=== PATIENT | male | born 1950 | race Caucasian/White ===

== ENCOUNTER 2020-01-06 07:55 | Day surgery (SDC) | payer OTHER, SELFPAY ==
[2020-01-05 13:41] VITALS: BMI 26.3
--- NOTE | 2020-01-06 08:22 | ANES.PREANE2 ---
Pre-Anesthetic Assessment Pre-Anesthetic Assessment: Height/Weight: Height 1.68 m Weight 73.936 kg Preop Diagnosis: Polyps Proposed Procedure: Operation Date: 01/06/20 10:00 Proposed Procedures p Colonoscopy(Not Applicable) - Isai Sterling MD Familial anesthetic complications: No trouble Last intake: Patient hasn't taken any of his medication in 3 -4 days, stopped them because he decided to NPO since yesterday morning Social: Social History: No alcohol and No tobacco Exam: Pre-Anes Outpt Exam: alert, oriented x 3, clear to auscultation bilaterally and regular rate & rhythm Airway: Cervical ROM: WNL MP: 4 Dentition: Full Pulmonary: Pulmonary: Sleep apnea (cpap) and None reported CV/HEM: CV/HEM: CAD, HTN and IN (7 years ago (placed 3 stents - then 2 years ago he had another stent placed)) Comments: Will give carvedilol : : None reported Hepatic: Hepatic: None reported GI: GI: None reported Metabolic: Metabolic: None reported Musc/skel: Musc/skel: None reported Neuropsych: Neuropsych: None reported Anesthetic Plan: ASA status: 3 Anesthesia: MAC Risk of > 500 ml blood loss (7ml/kg in children): No PFSH Anesthesia PFSH: Social History Smoking and tobacco status: never smoked Alcohol intake: former Lives independently: Yes Household members: spouse Marital status: Current occupational status: retired History of recent travel: No Data Anesthesia Cardiac Studies: No Data to Display
[2020-01-06 09:15] VITALS: BP 153/99; PULSE 78; RESP 18; TEMP 36.9; O2SAT 94
[2020-01-06] MEDS: sodium chloride 0.9% 1,000 ML 30 ML (09:25)
[2020-01-06] MEDS: carvedilol 6.25 mg Tablet PO (09:25)
--- NOTE | 2020-01-06 12:04 | SUR.OPER ---
RESOLUTION CLIP PLACED AT THE CECAL POLYP SITE
[2020-01-06 12:09] VITALS: BP 129/68; PULSE 55; RESP 16; TEMP 36.9; O2SAT 95
--- NOTE | 2020-01-06 12:15 | ANE.PACU2 ---
 Inpatient post-anesthesia follow up: Airway intact: Yes Vital signs: Temperature 98.4 F Pulse Rate 55 Respiratory Rate 16 Blood Pressure 129/68 Pulse Oximetry 95 Oxygen Delivery Me thod Nasal Cannula Oxygen Flow Rate 3.0 Fraction of Inspir ed Oxygen Hydration adequate: Yes Nausea and vomiting: No Pain level: 1 Mental status: Baseline
[2020-01-06 12:22] VITALS: BP 137/79; PULSE 54; RESP 18; O2SAT 97
--- NOTE | 2020-01-12 08:02 | W.PM.OPSUD ---
Surgery/Procedure H&P Update DATE OF PROCEDURE: 01/09/2020 DATE H&P PERFORMED: 12/09/19 PREOP DIAGNOSIS: History of colon polyps PLANNED PROCEDURE: Operation Date: 01/06/20 10:00 Proposed Procedures p Colonoscopy(Not Applicable) - Isai Sterling MD
== END 2020-01-06 12:40 | disposition home or self-care (01) ==
PROVIDERS: Family Provider Family Medicine; PCP Internal Medicine; Visit Provider Surgery
PROC: 0DJD8ZZ Inspection of Lower Intestinal Tract, Via Natural or Artificial Opening Endoscopic (ICD-10-PCS; CPT 45378; principal; 2020-01-06 10:00)
DX: Z12.11 Encounter for screening for malignant neoplasm of colon (principal); Z86.010 Personal history of colon polyps; Z79.82 Long term (current) use of aspirin; E78.5 Hyperlipidemia, unspecified; I10 Essential (primary) hypertension; G47.30 Sleep apnea, unspecified; Z82.49 Family history of ischemic heart disease and other diseases of the circulatory system; I25.10 Atherosclerotic heart disease of native coronary artery without angina pectoris; I25.2 Old myocardial infarction
CPT/HCPCS: 12345; 45385; 88305; J2704; J7030

== ENCOUNTER → 2020-08-16 14:48 | Outpatient (BNVA) | payer OTHER, SELFPAY | PROVIDERS: Family Provider Family Medicine; PCP Family Medicine; Visit Provider Internal Medicine Cardiovascular Disease | DX: E78.2 Mixed hyperlipidemia (principal); R06.02 Shortness of breath; R07.89 Other chest pain | CPT/HCPCS: 80048; 80061; 84484 ==

== ENCOUNTER 2020-09-02 07:43 | Outpatient (CLI) | payer OTHER, SELFPAY ==
[2020-09-02 07:52] VITALS: BMI 22.6
--- NOTE | 2020-09-02 07:54 | ECG_ITS ---
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 Interpretive Statements NAME OF STUDY: LEXISCAN SESTAMIBI STRESS TEST INDICATION: Chest Pain PROCEDURE: At the baseline, the EKG revealed sinus bradycardia with a rate of 51 bpm. Early repolarization changes.. The baseline blood pressure was 134/66 mm Hg with a heart rate of 51 beats/min. Lexiscan was infused over a period of 20 seconds. A total of 0.4 milligrams of Lexiscan was infused. The stress phase was continued for a total of 5 minutes. Heart rate at the end of the stress phase was 67 with a blood pressure 117/62. The EKG at the peak infusion revealed no significant changes. Sestamibi was injected 20 seconds after the Lexiscan infusion. Blood pressure at the end of the recovery phase was 128/66 with a heart rate of 65 per minute. CONCLUSION: 1. No significant EKG changes with the LexiScan infusion 2. No LexiScan induced chest pain or cardiac arrhythmia 3. Normal blood pressure and heart rate response 4. Sestamibi/sestamibi perfusion scan pending; see separate report. Electronically Signed On 09-03-2020 20:48:37 CDT by Mateo Lantigua M.D. [id number]
--- NOTE | 2020-09-02 07:54 | NMCV_ITS ---
NM sean perf SPECT r/s* [id number] Pacheco Gomez Age: 70 Gender: M : 1950 Exam Date: 09/02/2020 07:59 Ordering Phys: Mateo Lantigua MD ([email or web address]) Technologist: CASEY Gonzales Exam Location: [facility] Indications: CHEST PAIN STRESS TEST Please [facility] IMAGE PROTOCOL Rest/Stress 1 Lexiscan Day Radiopharmaceutical Dose (mCi) Administration Site Administered by Rest: Tc-99m 10.7 IV CASEY Crowley Sestamibi Stress:Tc-99m 32.3 IV CASEY Crowley Sestamibi Rest: 02-Sep-2020 60 Discovery 630 Stress: 02-Sep-2020 30 Discovery 630 0.4mg Lexiscan. Images obtained in supine and prone position. SPECT RESULTS Technical Quality: Excellent Raw Data Analysis: Normal Image Corrections: No attenuation or motion correction applied Summed Stress Score: 0 Summed Rest Score: 0 Summed Difference Score: 0 PERFUSION FINDINGS Fairly uniform myocardial tracer uptake with no significant perfusion abnormalities FUNCTIONAL RESULTS (calculated via Gated SPECT) Stress Image LV EF (%): 62 Stress EDV (mL):77 TID: 1.09 Stress ESV (mL):29 FUNCTIONAL FINDINGS: Segmental wall motion analysis revealing no gross wall motion abnormalities IMPRESSIONS 1. Unremarkable myocardial perfusion imaging 2. Normal LV ejection fraction of 62%. 3. LV wall motion analysis revealing no gross wall motion normalities. 4. Normal LV volume. Low probability for significant myocardial ischemia Dr Mateo Lantigua MD [facility] (Electronically Signed) Final Date: 02 September 2020 14:05 S
--- NOTE | 2020-09-02 09:09 | SUR.PREOP ---
Patient reports no pain or discomfort prior to the start of the procedure.
[2020-09-02] MEDS: regadenoson 0.4 Mg/5 ml Syringe IVP (09:10)
[2020-09-02 09:27] VITALS: BP 123/65; PULSE 65
== END 2020-09-02 07:44 | disposition home or self-care (01) ==
LOC: CDL 07:45
PROVIDERS: PCP Family Medicine; Visit Provider Internal Medicine Cardiovascular Disease
DX: R07.9 Chest pain, unspecified (principal); R06.02 Shortness of breath
CPT/HCPCS: 78452; 93017; A9500; J2785

== ENCOUNTER → 2021-04-29 10:00 | Outpatient (BNVA) | payer OTHER, SELFPAY | PROVIDERS: PCP Family Medicine; Referring Provider Surgery; Visit Provider Surgery | DX: Z20.822 Contact with and (suspected) exposure to COVID-19 (principal) | CPT/HCPCS: 87635 ==

== ENCOUNTER 2021-05-04 07:46 | Day surgery (SDC) | payer OTHER, SELFPAY ==
[2021-05-02 10:23] VITALS: BMI 25.8
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
[2021-05-04 08:33] VITALS: BP 175/86; PULSE 60; RESP 18; TEMP 36.2; O2SAT 95
[2021-05-04] MEDS: sodium chloride 0.9% 1,000 ML 30 ML IV (08:57)
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
[2021-05-04 09:58] VITALS: BP 135/69; PULSE 53; RESP 16; O2SAT 93
--- NOTE | 2021-05-04 10:01 | ANE.PACU2 ---
Inpatient post-anesthesia follow up: Airway intact: Yes Vital signs: Temperature 97.2 F Pulse Rate 60 Respiratory Rate 18 Blood Pressure 175/86 Pulse Oximetry 95 Oxygen Delivery Me thod Room Air Oxygen Flow Rate Fraction of Inspir ed Oxygen Hydration adequate: Yes Nausea and vomiting: No Pain level: 1 Mental status: Baseline
[2021-05-04 10:20] VITALS: BP 142/74; PULSE 55; RESP 18; O2SAT 95
== END 2021-05-04 10:40 | disposition home or self-care (01) ==
PROVIDERS: PCP Family Medicine; Visit Provider Surgery
PROC: 0DJ08ZZ Inspection of Upper Intestinal Tract, Via Natural or Artificial Opening Endoscopic (ICD-10-PCS; CPT 43235; principal; 2021-05-04 09:15)
PROC: 0DJD8ZZ Inspection of Lower Intestinal Tract, Via Natural or Artificial Opening Endoscopic (ICD-10-PCS; CPT 45378; 2021-05-04 09:15)
DX: K92.1 Melena (principal); K57.30 Diverticulosis of large intestine without perforation or abscess without bleeding; K21.00 Gastro-esophageal reflux disease with esophagitis, without bleeding; K29.80 Duodenitis without bleeding; F32.9 Major depressive disorder, single episode, unspecified; Z86.010 Personal history of colon polyps; E78.5 Hyperlipidemia, unspecified; I10 Essential (primary) hypertension; G47.30 Sleep apnea, unspecified; Z82.49 Family history of ischemic heart disease and other diseases of the circulatory system; Z83.3 Family history of diabetes mellitus; I25.10 Atherosclerotic heart disease of native coronary artery without angina pectoris; Z95.5 Presence of coronary angioplasty implant and graft; I25.2 Old myocardial infarction
CPT/HCPCS: 43239; 45378; 87077; 96360; 96361; J2704; J7030

== ENCOUNTER 2021-08-29 07:13 | Outpatient (CLI) | payer OTHER, SELFPAY ==
[2021-08-29 07:34] VITALS: BMI 25.8
--- NOTE | 2021-08-29 07:35 | ECG_ITS ---
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 Interpretive Statements NAME OF STUDY: LEXISCAN SESTAMIBI STRESS TEST INDICATION: Cp/ashd, PROCEDURE: At the baseline, the EKG revealed sinus bradycardia with a rate of 55 bpm. Early repolarization changes. The baseline blood pressure was 133/70 mm Hg with a heart rate of 55 beats/min. Lexiscan was infused over a period of 20 seconds. A total of 0.4 milligrams of Lexiscan was infused. The stress phase was continued for a total of 5 minutes. Heart rate at the end of the stress phase was 74 with a blood pressure 102/56. The EKG at the peak infusion revealed no significant changes. Sestamibi was injected 20 seconds after the Lexiscan infusion. Blood pressure at the end of the recovery phase was 103/61 with a heart rate of 70 per minute. CONCLUSION: 1. No significant EKG changes with the LexiScan infusion 2. No LexiScan induced chest pain or cardiac arrhythmia 3. Normal blood pressure and heart rate response 4. Sestamibi/sestamibi perfusion scan pending; see separate report. Electronically Signed On 09-01-2021 23:16:51 CDT by Mateo Lantigua M.D. [id number]
--- NOTE | 2021-08-29 07:35 | NMCV_ITS ---
NM sean perf SPECT r/s* [id number] Pacheco Gomez Age: 71 Gender: M : 1950 Exam Date: 08/29/2021 08:43 Ordering Phys: Mateo Lantigua MD ([email or web address]) Technologist: CASEY Gonzales Exam Location: [facility] Indications: CHEST PAIN STRESS TEST Please see [facility] for full findings IMAGE PROTOCOL Rest/Stress 1 Lexiscan Day Radiopharmaceutical Dose (mCi) Administration Site Administered by Rest: Tc-99m 10.8 IV CASEY Crowley Sestamibi Stress:Tc-99m 32.5 IV CASEY Gonzales Sestamishelley Rest: 29-Aug-2021 60 Discovery 630 Stress: 29-Aug-2021 30 Discovery 630 0.4mg Lexiscan. Images obtained in supine and prone position. SPECT RESULTS Technical Quality: Excellent Raw Data Analysis: Normal Image Corrections: No attenuation or motion correction applied Summed Stress Score: 1 Summed Rest Score: 0 Summed Difference Score: 1 PERFUSION FINDINGS A small area of slightly decreased tracer uptake was noted in the mid inferolateral region. Some reversibility was noted in this region at rest FUNCTIONAL RESULTS (calculated via Gated SPECT) Stress Image LV EF (%): 71 Stress EDV (mL):73 TID: 0.85 Stress ESV (mL):21 FUNCTIONAL FINDINGS: Segmental wall motion analysis revealing no gross wall motion abnormalities IMPRESSIONS 1. A small area of reversible defect in the mid inferolateral region, suggestive of ischemia in the distribution of the left circumflex artery. 2. Normal LV ejection fraction 71%. 3. LV wall motion analysis revealing no gross wall motion abnormalities. 4. Normal LV volume. No similar previous studies are available for comparison Dr Mateo Lantigua MD [facility] (Electronically Signed) Final Date: 29 August 2021 16:32 S
[2021-08-29] MEDS: regadenoson 0.4 Mg/5 ml Syringe IVP (09:31)
[2021-08-29 09:32] VITALS: BP 103/61; PULSE 70
== END 2021-08-29 07:14 | disposition home or self-care (01) ==
LOC: RAD 07:17 → CDL 07:23
PROVIDERS: PCP Family Medicine; Visit Provider Internal Medicine Cardiovascular Disease
DX: R07.9 Chest pain, unspecified (principal)
CPT/HCPCS: 78452; 93017; A9500; J2785

== ENCOUNTER → 2021-08-31 15:38 | Outpatient (BNVA) | payer OTHER, SELFPAY | PROVIDERS: PCP Family Medicine; Visit Provider Internal Medicine Cardiovascular Disease | DX: I25.118 Atherosclerotic heart disease of native coronary artery with other forms of angina pectoris (principal); Z20.822 Contact with and (suspected) exposure to COVID-19 | CPT/HCPCS: 80048; 85025; 85610; 87635 ==

== ENCOUNTER 2021-09-07 08:40 | Day surgery (SDC) | payer OTHER, SELFPAY ==
[2021-09-07] VITALS (20 sets, daily range): BP systolic 93–161; BP diastolic 56–77; PULSE 41–50; RESP 10–20; TEMP 36.3; O2SAT 88–98; BMI 25.4
--- NOTE | 2021-09-07 06:00 | XACV_ITS ---
Exam Room: 1 Ht: 168 cm Wt: 72 kg BSA: 1.84 m2 Gender: Male : 1950 Any Known Allergies: No known allergies Exam Priority: Routine Procedure(s): Procedure Description: Diagnostic procedure Procedure Description: Left Heart Catheterization Procedure Description: Coronary Angiography Grzegorz HAMM; Diagnostic Cath Status: Elective Diagnostic Findings * No disease noted in the Left Main, Left Anterior Descending, Right, or Circumflex coronary arteries. * Coronary angiography shows right dominance. * The left main is a medium caliber vessel with no significant stenotic lesions. * The left anterior descending artery is a medium caliber vessel which appears to wrap around the LV apex minimally. The proximal LAD was found to have moderate diffuse disease, lesions ranging anywhere from 30 to 50%. The mid LAD was found to have a long stented segment which was found to be patent with minimal in-stent stenosis. The first diagonal branch was found to be a medium caliber vessel with a proximal around 50 to 60% narrowing, including the ostium.. Good antegrade flow was noted. No other significant stenotic lesions were noted. * The left circumflex artery is a medium caliber vessel which was found to have 20 to 30% diffuse intimal regularities in the proximal segment. No significant stenotic lesions are noted in the mid to distal vessels. * The right coronary artery is a medium caliber vessel which was found to have a proximal 20 to 30% diffuse tubular narrowing. Minimal intimal irregularities are noted in the mid and distal vessels. No significant stenotic lesions. Conclusions 1. No disease noted in the Left Main, Left Anterior Descending, Right, or Circumflex coronary arteries. 2. This is a 71-year-old white male with history of coronary artery disease, high blood pressure, dyslipidemia, type 2 diabetes and previous PCI, is presenting with complaints of increasing episodes of chest pain. He had a myocardial perfusion imaging which revealed a some areas of reversible defect in the distribution of the left circumflex artery. In view of the ongoing worsening of the patient's symptoms and also the abnormal objective findings, for further evaluation of his coronary status, cardiac catheterization was recommended.patient underwent left heart catheterization with left and right coronary angiogram today. The findings are as follows.. 3. Patent long stented segment of the left anterior descending artery. Minimal in-stent narrowing. Mild diffuse disease in the other vessels. Moderate ostial narrowing of the first diagonal branch of the left anterior descending artery. Markedly elevated left ventricular end-diastolic pressure. 4. I reviewed and discussed the cardiac catheterization data with the daughter Rylee. The concern was whether to do a FFR on the diagonal lesion or not. Since the stenosis did not look severe and also since the area of ischemia was different from the diagonal artery territory, it was thought to be appropriate to optimize medical treatment at this point. Recommendations * Continue current medical management and risk factor modification. Diagnostic RX Recommendation: medical therapy and/or counseling LV EDP: 28 mmHg Left Ventriculography Findings: * LV gram was not performed. Pressures Phase:Rest AO : 99 / 56 ( 74 ) @ 6:36:00 AM 117 / 45 ( 82 ) @ 6:41:00 AM 119 / 69 ( 91 ) @ 6:47:00 AM 121 / 72 ( 94 ) @ 6:50:00 AM 133 / 53 ( 85 ) @ 6:57:00 AM 132 / 55 ( 87 ) @ 6:57:00 AM 132 / 59 ( 87 ) @ 7:02:00 AM 171 / 58 ( 98 ) @ 7:06:00 AM LV : 112 / 21 / 28 @ 6:57:00 AM 121 / 13 / 30 @ 6:57:00 AM Valves Phase:DefaultPhase AV : 0.0 @ 8:14:45 AM AV Mean Gradient: 0.0 @ 8:14:45 AM Clinical Evaluation EBL: 5mL-10mL Procedural Details Procedure Consent Obtained. Pre-Procedure Time Out. Identified patient by full name and date of as verbalized by the patient/guarantor. Does the consent match the physician's order: Yes. Accurate & Complete Informed Consent: Yes. Inpatient/Outpatient History & Physical on Chart: Yes. If H&P is completed, is and addenduem needed: No; If yes, is the addendum complete: N/A. Visualize and Verify Site with Patient/Guarantor: N/A. Relevant Radiology Images available: Yes. Pre-op teaching completed and patient verbalized understanding. The risks, benefits, and alternatives of sedation and/or procedure were discussed by physician. The patient agrees to continue. Procedure started. [facility] Clinical Fraility Score: 3: Managing Well. Senior Qc Technician Indications: Worsening Angina. Chest Pain Symptom Assessment: Typical Angina Symptoms. Current Diagnosis : Chest Pain. Correct patient, site and procedure confirmed by cath team. Current diagnosis: Chest Pain. PERRLA. Strong, equal hand elevator installer bilaterally. Lungs clear x 5 lobes. IV Site on Arrival: 20 gauge in the left anticubital. IV Fluids: 0.9% NaCl at KVO. 0 mL infused prior to entry level lab technician. Pre Procedural Pulses: bilateral dorsalis pedis was 1+. Pre Procedural Pulses: bilateral posterior tibial was 1+. Pre Procedural Pulses: right radial was 2+. Oxygen started at 2liters/min via nasal canula. right groin was prepped with chloroprep then draped in the usual sterile fashion. right radial was prepped with chloroprep then draped in the usual sterile fashion. Physician notified. Baseline sample Acquired. HR: 43 BPM. Physician arrived. Physician scrubbed in. Immediate Pre-Procedure Time Out. Correct Patient: Yes; Correct Procedure: Yes; Correct Site: Yes; Correct Patient Position: Yes; Correct Supplies: Yes; Dried Flammable Prep: Yes; Blood Products Available: N/A;. Lidocaine 1% infiltrated to the right radial. Arterial access obtained. A 5 trinidadian Mathieu catheter in over wire. wire out. contrast hand injected through the catheter. Inventory is TR Glidewire Angled Stiff Shaft .035 260cm. glidewire inserted through the catheter. Catheter removed over the exchange wire. A 5 trinidadian TIG catheter in over wire. Multiple views taken of left coronary artery. Catheter redirected to the RCA. Catheter removed over the exchange wire. Dr. Mckee called to review films. A 5 trinidadian JR4 catheter in over wire. Multiple views taken of right coronary artery. Catheter removed over the exchange wire. A 5 trinidadian Angled Pig catheter in over wire. EDP Sample taken: LV 112/21,28; HR: 55 BPM; SpO2: 96%. Pullback taken: LV 121/13,30; AO 133/53(85); Mean: 0mmHg, Peak to Peak: 0mmHg, SEP: 3sec/min; HR: 54 BPM; SpO2: 98%. Side port of sheath attached to Normal Saline flush at KVO to maintain patency. Dr. Lantigua scrubbed out. Dr. Mckee arrived. Catheter removed over the exchange wire. A TR Band was successful obtaining hemostatsis at the Right Radial artery insertion site. Post Procedure: Pulses reassessed and unchanged. PERRLA. Strong, equal hand elevator installer bilaterally. No VTE prophylaxis required. Medication's Wasted: Lidocaine 1% = 15 mL. Medication's Wasted: Heparin = 1000 units. Medication's Wasted: Nitro = 49.8 mcg. Total IV fluids: 331 mL. Contrast type used: Omnipaque 300 mgI/mL, 500 mL bottle. Complications: None. Estimated blood loss: 5mL-10mL. Procedure completed. Patient transferred by wheelchair to CPRU. Vital chart was stopped. Access Site Site: Right Radial artery Sheath Size: 6 Fr Hemostasis Method: TR Band Hemostasis Success: Successful Procedure Medications Start: 7:13 AM Stop: 7:13 AM Medication: Fentanyl Amount: 25 mcg Route: I.V. Start: 7:20 AM Stop: 7:20 AM Medication: Versed Amount: 1 mg Route: I.V. Start: 7:20 AM Stop: 7:20 AM Medication: Fentanyl Amount: 50 mcg Route: I.V. Start: 7:26 AM Stop: 7:26 AM Medication: Versed Amount: 1 mg Route: I.V. Start: 7:28 AM Stop: 7:28 AM Medication: Verapamil Amount: 5 mg Route: I.A. Start: 7:28 AM Stop: 7:28 AM Medication: Nitrogylcerin Amount: 200 mcg Route: I.A. Start: 7:28 AM Stop: 7:28 AM Medication: 0.9% Saline Amount: 250 ml Route: I.V. bolus Start: 7:35 AM Stop: 7:35 AM Medication: Heparin Amount: 5000 units Route: I.V. Start: 8:02 AM Stop: 8:02 AM Medication: Fentanyl Amount: 25 mcg Route: I.V. I, the attending physician, have reviewed and verified all procedure medications. Yes, all medications given per verbal order History/Risk Factors Hypertension: Yes Dyslipidemia: Yes Peripheral Arterial Disease (PAD): No Myocardial Infarction (KS): No Obesity: No Renal Disease: No Prior Interventions PCI: Yes CABG: No Valve Surgery: No Date of PCI: 06/07/2017 Report Signatures Finalized by Dr Mateo Lantigua MD [facility] on 09/07/2021 11:01 PM
--- NOTE | 2021-09-07 07:17 | W.PM.OPSUD ---
Surgery/Procedure H&P Update DATE OF PROCEDURE: September 07, 2021 DATE H&P PERFORMED: 08/31/21 H&P UPDATE INFORMATION: I have reviewed H&P completed within last 30 days, I have examined patient prior to procedure, No changes to prior documentation, Changes to prior documentation as noted here, H&P to be scanned into chart and H&P is in [facility] EMR on date indicated PREOP DIAGNOSIS: ASHD PRIMARY INDICATION FOR PROCEDURE: chest pain,abnormal stress PLANNED PROCEDURE: Operation Date: 09/07/21 07:00 Proposed Procedures p Cardiac Catheterization(Left) - Mateo Lantigua MD PATIENT REASSESSED PRIOR TO SEDATION, WITH NO CHANGE NOTED: Yes PHYSICAL EXAM: alert, clear to auscultation bilaterally and regular rate & rhythm AIRWAY EVAL/ANESTHESIA PLAN: normal airway, see other exam findings, ASA III, Monitored Anesthesia, Local Anesthesia, Risks, benefits & alternatives of sedation and/or procedure discussed and Patient agrees to continue as planned
--- NOTE | 2021-09-07 12:00 | PC.NURSE ---
TR band removal per protocol no adverse events noted
--- NOTE | 2021-09-07 14:32 | PC.NURSE ---
Discharge Note Patient discharged to Home via private vehicle accompanied by spouse. Discharge instructions reviewed with patient and/or territory sales representative. Mobile pharmacy medications and/or prescriptions provided. Belongings/home medications returned.
== END 2021-09-07 14:05 | disposition home or self-care (01) ==
LOC: CSU 13:11 → OPOB 09-16 10:27 → CSU 09-16 10:27
PROVIDERS: PCP Family Medicine; Visit Provider Internal Medicine Cardiovascular Disease
DX: R07.9 Chest pain, unspecified (principal); R94.39 Abnormal result of other cardiovascular function study; I25.10 Atherosclerotic heart disease of native coronary artery without angina pectoris; Z95.5 Presence of coronary angioplasty implant and graft; I10 Essential (primary) hypertension; E78.5 Hyperlipidemia, unspecified; E11.9 Type 2 diabetes mellitus without complications
CPT/HCPCS: 36415; 93452; C1769; C1887; C1894; G0378; J1644; J2250; J3010; J3490; J7030; Q9967

== ENCOUNTER → 2021-09-14 11:00 | Outpatient (BNVA) | payer OTHER, SELFPAY | PROVIDERS: PCP Family Medicine; Visit Provider Nurse Practitioner Family | DX: I25.118 Atherosclerotic heart disease of native coronary artery with other forms of angina pectoris (principal) | CPT/HCPCS: 80048 ==

== ENCOUNTER → 2022-02-15 13:06 | Outpatient (BNVA) | payer OTHER, SELFPAY | PROVIDERS: PCP Family Medicine; Visit Provider Internal Medicine Cardiovascular Disease | DX: I25.118 Atherosclerotic heart disease of native coronary artery with other forms of angina pectoris (principal); I10 Essential (primary) hypertension; E78.2 Mixed hyperlipidemia | CPT/HCPCS: 99214 ==

== ENCOUNTER 2022-02-16 09:01 | Outpatient (CLI) | payer OTHER, SELFPAY ==
--- NOTE | 2022-02-16 09:12 | MR_ITS ---
WS: [id number] MRI HEAD WITHOUT CONTRAST TECHNIQUE: Sagittal T1, T2 axial, T2 axial FLAIR, axial and coronal T1 images, axial susceptibility w eighted imaging, axial diffusion weighted images, and coronal T2 images were obtained. CLINICAL INFORMATION: NEW ONSET HEADACHES COMPARISON: CT head 8 16,018 FINDINGS: No evidence of restricted diffusion to suggest acute ischemia. Ventricular system and basal cisterns are patent. Mild small vessel changes. Mild parenchymal volume loss. Normal posterior fossa. Normal v ascular flow voids at the skull base. No extra-axial fluid collections. No evidence of mass or mass e ffect. Small Retention cyst LEFT maxillary sinus. Mastoid air cells well aerated. Normal optic chiasm and pi tuitary infundibulum. Temporal lobes and hippocampal formations are normal in appearance. No hemoside rin on susceptibly weighted images. MR/MR head wo con* [id number] IMPRESSION: 1. No evidence of restricted diffusion to suggest acute ischemia. 2. Mild small vessel changes. Mild parenchymal volume loss. 3. No hemosiderin on the susceptibly weighted images. 4. Small retention cyst left maxillary sinus. Paranasal sinuses and mastoid ai r cells are well aerated. 5. Normal optic chiasm and pituitary infundibulum. 6. No other significant findings.
--- NOTE | 2022-02-16 09:27 | MR_ITS ---
WS: [id number] MRA HEAD TECHNIQUE: Axial 3-D TOF images obtained with axial images and axial, sagittal, and coronal 2-D refor matted images. CLINICAL INFORMATION: NEW ONSET HEADACHE COMPARISON: CT head 8 16,018 FINDINGS: Distal vertebral arteries are patent. Basilar artery is patent. Normal vascularity to the KNITTING INSPECTOR territo ry bilaterally. Both ICAs are patent at the skull base. Normal vascularity to the NEMESIO MCA territories bilaterally. No evidence of flow-limiting stenosis or aneurysm. MR/MR angio head wo con [id number] IMPRESSION: Normal intracranial MRA.
== END 2022-02-16 09:02 | disposition home or self-care (01) ==
LOC: RAD 09:07
PROVIDERS: PCP Family Medicine; Visit Provider Family Medicine
DX: R51.9 Headache, unspecified (principal); J34.1 Cyst and mucocele of nose and nasal sinus
CPT/HCPCS: 70544; 70551

== ENCOUNTER → 2022-08-10 14:24 | Outpatient (BNVA) | payer OTHER, SELFPAY | PROVIDERS: PCP Family Medicine; Visit Provider Internal Medicine Cardiovascular Disease | DX: I25.118 Atherosclerotic heart disease of native coronary artery with other forms of angina pectoris (principal); G47.33 Obstructive sleep apnea (adult) (pediatric); I10 Essential (primary) hypertension; E78.2 Mixed hyperlipidemia; R00.2 Palpitations | CPT/HCPCS: 93005; 99214 ==

== ENCOUNTER 2022-08-11 09:44 | Outpatient (CLI) | payer OTHER, SELFPAY ==
[2022-08-11 10:39] LABS: Blood Urea Nitrogen 16 mg/dL (8-23); Calcium 9.2 mg/dL (8.5-10.5); Carbon Dioxide 31 mmol/L (22-29); Chloride 103 mmol/L (98-107); Chol HDL Ratio 4.24 mg/dL (1.0-5.00); Cholesterol 144 mg/dL (0-200); Glucose 96 mg/dL (65-115); HDL Cholesterol 34 mg/dL (60-100); LDL Cholesterol Calculated 80 mg/dL (50-129); LDL HDL Ratio 2.35 RATIO (0.00-3.22); Osmolality Calculated 291 mOsm/kg (285-295); Sodium 140 mmol/L (136-145); Thyroid Stimulating Hormone 2.96 uIU/mL (0.27-4.20); Triglycerides 151 mg/dL (0-150)
[2022-08-11 10:41] LABS: Anion Gap 10.5 (5-19)
[2022-08-11 10:42] LABS: Potassium 4.5 mmol/L (3.5-5.1)
== END 2022-08-11 09:45 | disposition home or self-care (01) ==
LOC: LAB 09:46
PROVIDERS: PCP Family Medicine; Visit Provider Internal Medicine Cardiovascular Disease
DX: E78.5 Hyperlipidemia, unspecified (principal); N18.9 Chronic kidney disease, unspecified; R06.02 Shortness of breath
CPT/HCPCS: 36415; 80048; 80061; 84443

== ENCOUNTER 2023-01-30 08:27 | Outpatient (CLI) | payer OTHER, SELFPAY ==
--- NOTE | 2023-01-30 08:41 | USCV_ITS ---
Pacheco Gomez Age: 72 Gender: M : 1950 Exam Date: 01/30/2023 09:27 Ordering Phys: Danielle Live MD Technologist: CT Exam Location: [facility] Indication: screening HISTORY: Diameter (cm) AP x Transverse x Length Velocity (cm/s) Waveform Prox Aorta: 2.67 x 2.74 x 46.00 Mid Aorta: 1.97 x 2.10 x 48.30 Distal Aorta: 1.89 x 1.89 x 60.30 Right Iliac Prox: 1.19 x 1.24 x 89.20 Left Iliac Prox: 1.04 x 1.16 x 104.20 Stent Prox Landing x x Aneurysmal Sac Max x x Lt Lat Sac Dim Rt Lat Sac Dim Stent Dist Landing x x Right Iliac Stent x x Left Iliac Stent x x Right Renal Art Left Renal Art FINDINGS: Normal abdominal aortic dimensions Normal Doppler flow velocities Normal iliac artery dimensions CONCLUSIONS Normal abdominal aortic dimensions with no evidence of aneurysm Patent iliac arteries with no evidence of any significant stenosis at the proximal segments Dr Mateo Lantigua MD FAC (Electronically Signed) Final Date: 30 January 2023 22:42 S
== END 2023-01-30 08:28 | disposition home or self-care (01) ==
LOC: RAD 08:31
PROVIDERS: PCP Family Medicine; Visit Provider Family Medicine
DX: Z13.6 Encounter for screening for cardiovascular disorders (principal)
CPT/HCPCS: 76706

== ENCOUNTER → 2023-02-15 14:04 | Outpatient (BNVA) | payer OTHER, SELFPAY | PROVIDERS: PCP Family Medicine; Visit Provider Internal Medicine Cardiovascular Disease | DX: I25.118 Atherosclerotic heart disease of native coronary artery with other forms of angina pectoris (principal); R00.2 Palpitations; G47.33 Obstructive sleep apnea (adult) (pediatric); I10 Essential (primary) hypertension; E78.2 Mixed hyperlipidemia; R07.89 Other chest pain | CPT/HCPCS: 93246; 99214 ==

== ENCOUNTER 2023-06-30 01:24 | Emergency (ER) | payer OTHER, SELFPAY ==
[2023-06-30 01:25] VITALS: BP 120/76; PULSE 68; RESP 18; TEMP 36.7; O2SAT 90; BMI 25.2
--- NOTE | 2023-06-30 01:28 | ECG_ITS ---
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 Measurements Intervals [place] Rate: 66 P: 31 DE: 194 QRS: 11 QRSD: 90 T: 29 QT: 394 QTc: 416 Interpretive Statements SINUS RHYTHM ST ELEVATION, PROBABLY EARLY REPOLARIZATION [ST ELEVATION WITH NORMALLY INFLECTED T-WAVE] Compared to ECG 09/21/2019 15:50:42 ST (T wave) deviation now present Sinus bradycardia no longer present Electronically Signed On 06-30-2023 12:10:34 CDT by Nidhi Pack M.D. [id number]
--- NOTE | 2023-06-30 01:29 | XRR_ITS ---
PROCEDURE INFORMATION: Exam: XR Chest Exam date and time: 06/30/2023 1:46 AM Age: 73 years old Clinical indication: Pain; Chest pressure; Prior surgery; Surgery date: 6+ months; Surgery type: Cardiac stents; Additional info: Cp TECHNIQUE: Imaging protocol: Radiologic exam of the chest. Views: 1 view. COMPARISON: CR XR chest 2V* [id number] 09/21/2019 1:02 PM FINDINGS: Lungs: Minimal bibasilar atelectasis. No consolidation. Pleural spaces: Unremarkable. No pleural effusion. No pneumothorax. Heart/Mediastinum: Unremarkable. No cardiomegaly. Bones/joints: Unremarkable. XR/XR chest 1V portable [id number] IMPRESSION: No acute findings.
[2023-06-30 01:31] VITALS: BP 120/76; PULSE 68; RESP 20; TEMP 36.7; O2SAT 92
[2023-06-30 01:40] LABS: Basophils % 0.6 %; Eosinophils # 0.6 10^3/uL (0.0-0.8); Eosinophils % 9.2 %; Hematocrit 42.8 % (42.0-52.0); Hemoglobin 14.9 g/dL (11.7-16.6); Lymphocytes # 2.2 10^3/uL (0.8-4.8); Lymphocytes % 32.3 %; Mean Corpuscular HGB Conc 34.8 g/dL (30.0-36.0); Mean Corpuscular Hemoglobin 32.6 pg (28.0-34.0); Mean Corpuscular Volume 93.7 fl (80-94); Mean Platelet Volume 9.5 fL (7.4-10.4); Monocytes # 0.8 10^3/uL (0.2-0.9); Monocytes % 11.4 %; Neutrophils # 3.12 10^3/uL (1.8-7.7); Neutrophils % 46.4 %; Nucleated Red Blood Cells % 0 %; Platelet Count 253 10^3/cmm (130-400); Red Blood Count 4.57 10^6/uL (4.1-5.3); Red Cell Distribution Width 12.3 % (12.1-15.1); White Blood Count 6.7 10^3/uL (4.0-10.0)
[2023-06-30 01:57] LABS: Partial Thromboplastin Time 19.6 SECONDS (23.9-36.7)
[2023-06-30 02:01] LABS: Alanine Aminotransferase 21 U/L (0-41); Albumin Level 4.2 g/dL (3.5-5.2); Aspartate Amino Transferase 22 U/L (0-40); Carbon Dioxide 27 mmol/L (22-29); Osmolality Calculated 291 mOsm/kg (285-295); Potassium 3.9 mmol/L (3.5-5.1); Sodium 138 mmol/L (136-145); Total Bilirubin 0.3 mg/dL (0.15-1.2)
[2023-06-30 02:03] LABS: Troponin(5th) Baseline 8 ng/L (0-15)
[2023-06-30 02:12] LABS: Anion Gap 14.9 (5-19); Blood Urea Nitrogen 24 mg/dL (8-23); Calcium 9.2 mg/dL (8.5-10.5); Chloride 100 mmol/L (98-107); Glucose 122 mg/dL (65-115); Total Protein 6.5 g/dL (6.6-8.7)
[2023-06-30 02:13] LABS: Alkaline Phosphatase 59 U/L (40-130); Globulin 2.3 g/dL (1.3-4.6)
[2023-06-30 02:14] VITALS: RESP 18; O2SAT 94
[2023-06-30] MEDS: morphine 4 mg/mL SDV 1 mL IVP (02:14)
[2023-06-30] MEDS: ondansetron 2 mg/ML SDV 2 mL 4 MG IVP (02:14)
[2023-06-30] MEDS: aluminum-mag hydrox-simethicon 30 ML, sucralfate oral liq 1 GM PO (02:15)
[2023-06-30 02:18] LABS: NT Pro B Type Natriuretic Pept 36 pg/mL (0-450)
--- NOTE | 2023-06-30 03:35 | ECG_ITS ---
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 Measurements Intervals [place] Rate: 54 P: 38 RI: 206 QRS: 6 QRSD: 93 T: 22 QT: 429 QTc: 410 Interpretive Statements SINUS BRADYCARDIA MODERATE VOLTAGE CRITERIA FOR LVH, CONSIDER NORMAL VARIANT [MEETS CRITERIA IN ONE OF: R(aVL), S(V1), R(V5), R(V5/V6)+S(V1)] Compared to ECG 06/30/2023 01:28:34 Sinus rhythm no longer present ST (T wave) deviation no longer present Early repolarization no longer present Electronically Signed On 06-30-2023 12:11:39 CDT by Nidhi Pack M.D. [id number]
[2023-06-30 04:26] VITALS: BP 120/76; PULSE 55; RESP 16; O2SAT 92
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
== END 2023-06-30 04:28 | disposition home or self-care (01) ==
PROVIDERS: Emergency Provider Emergency Medicine; PCP Family Medicine
DX: R07.9 Chest pain, unspecified (principal)
CPT/HCPCS: 36415; 71045; 80053; 83880; 84484; 85025; 85610; 85730; 93005; 96374; 96375; 99285; J2270; J2405

== ENCOUNTER 2023-07-05 08:04 | Emergency (ER) | payer OTHER, SELFPAY ==
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
[2023-07-05 08:22] VITALS: BP 165/88; PULSE 63; TEMP 36.4; O2SAT 93; BMI 25.8
--- NOTE | 2023-07-05 08:40 | CT_ITS ---
WS: [id number] CT ABDOMEN PELVIS TECHNIQUE: Contrast-enhanced CT of the abdomen and pelvis with coronal and sagittal reformatted image s. CLINICAL INFORMATION: LLQ pain COMPARISON: None. DLP: 499.[address] scans at [facility] use at least one of these dose optimization techniques: automated e xposure control; mA and/or kV adjustment per patient size (includes targeted exams where dose is matc hed to clinical indication); or iterative reconstruction. FINDINGS: Diffuse thickening of the sigmoid colon with inflammatory stranding compatible with acute diverticul itis. No evidence of drainable abscess or fluid collection. Recommend follow-up to resolution. Mild diffuse fatty filtration of the liver. Several incidental hepatic cysts. Normal portal vein and splenic vein. Normal spleen. Tiny esophageal hernia. Bibasilar atelectasis. Noncalcified nodule RIGHT lower lobe measuring 5 mm. Adrenal glands are normal . Normal renal parenchymal enhancement. No hydronephrosis. Small RIGHT renal cyst. Normal caliber abd ominal aorta. Calcified prostate measuring 3.6 cm. Normal caliber abdominal aorta. Moderate spondyli tic changes lumbar spine. IMPRESSION: 1. Diffuse thickening of the sigmoid colon with inflammatory stranding compatible with acute diverti culitis. No evidence of drainable abscess or fluid collection. Recommend follow-up to resolution. 2. Incidental hepatic cysts. 3. No hydronephrosis in either kidney. 4. Fat-containing LEFT inguinal hernia. Message LEFT for MARIA Dunlap at 07/05/2023 10:33 AM.
[2023-07-05] MEDS: sodium chloride 0.9% 1,000 ML 999 ML IV (08:50)
[2023-07-05 08:56] VITALS: BP 139/71; PULSE 58; O2SAT 93
[2023-07-05 09:00] VITALS: BP 139/71; PULSE 56; O2SAT 94
--- NOTE | 2023-07-05 09:04 | PC.PHAR ---
[facility]XED [facility] AT 9:00 AM FOR MED LIST
[2023-07-05 09:05] LABS: Add Urine Microscopic? NO; Charge for UA Resulting for Rev
[2023-07-05 09:08] LABS: Basophils % 0.4 %; Eosinophils # 0.6 10^3/uL (0.0-0.8); Eosinophils % 6.3 %; Hematocrit 49.7 % (37-53); Lymphocytes # 1.3 10^3/uL (0.8-4.8); Lymphocytes % 12.5 %; Mean Corpuscular HGB Conc 33.6 g/dL (30-55); Mean Corpuscular Hemoglobin 31.9 pg (27-33); Mean Corpuscular Volume 94.8 fl (82-101); Mean Platelet Volume 9.5 fL (7.4-10.4); Monocytes # 0.9 10^3/uL (0.2-0.9); Monocytes % 8.7 %; Neutrophils # 7.22 10^3/uL (1.8-7.7); Neutrophils % 71.8 %; Nucleated Red Blood Cells % 0 %; Platelet Count 291 10^3/cmm (157-399); Red Blood Count 5.24 10^6/uL (3.85-5.65); Red Cell Distribution Width 12.3 % (12.1-15.1); White Blood Count 10.05 10^3/uL (3.29-11.43)
[2023-07-05 09:18] LABS: Bilirubin Urine Neg (Negative); Blood Urine Neg (Negative); Glucose Urine UA Norm (Normal); Ketones Urine Negative (Negative); Leukocyte Esterase Urine Negative (Negative); Nitrate Urine Negative (Negative); Protein Urine Neg (Negative); Urine Appearance Clear (CLEAR); Urine Color Yellow (Yellow); Urobilinogen Urine Norm (Negative); pH Urine 5 (5-7)
[2023-07-05 09:31] LABS: Alanine Aminotransferase 16 U/L (0-41); Albumin Level 4.2 g/dL (3.5-5.2); Alkaline Phosphatase 84 U/L (40-130); Anion Gap 13.9 (5-19); Aspartate Amino Transferase 17 U/L (0-40); Blood Urea Nitrogen 21 mg/dL (8-23); Calcium 9.3 mg/dL (8.5-10.5); Carbon Dioxide 27 mmol/L (22-29); Chloride 103 mmol/L (98-107); Globulin 3.3 g/dL (1.3-4.6); Glucose 103 mg/dL (65-115); Lipase 41 U/L (13-60); Osmolality Calculated 291 mOsm/kg (285-295); Potassium 4.9 mmol/L (3.5-5.1); Sodium 139 mmol/L (136-145); Total Bilirubin 0.3 mg/dL (0.15-1.2); Total Protein 7.5 g/dL (6.6-8.7)
[2023-07-05 09:32] LABS: Lactic Sepsis W/Reflex 0.9 mmol/L (0.5-2.2)
[2023-07-05] MEDS: iohexol 350 mg/mL 500 mL Btl (per mL) IV (09:47)
[2023-07-05 10:00] VITALS: BP 146/67; PULSE 52; O2SAT 93
== END 2023-07-05 11:19 | disposition home or self-care (01) ==
PROVIDERS: Emergency Provider Physician Assistant; PCP Family Medicine
DX: K57.92 Diverticulitis of intestine, part unspecified, without perforation or abscess without bleeding (principal); Z79.02 Long term (current) use of antithrombotics/antiplatelets; I25.10 Atherosclerotic heart disease of native coronary artery without angina pectoris; E78.5 Hyperlipidemia, unspecified; I10 Essential (primary) hypertension
CPT/HCPCS: 74177; 80053; 81003; 83605; 83690; 85025; 96360; 96361; 99285; J7030; Q9967

== ENCOUNTER → 2023-07-18 09:27 | Outpatient (BNVA) | payer OTHER, SELFPAY | PROVIDERS: PCP Family Medicine; Visit Provider Internal Medicine Cardiovascular Disease | DX: I25.118 Atherosclerotic heart disease of native coronary artery with other forms of angina pectoris (principal); G47.33 Obstructive sleep apnea (adult) (pediatric); I10 Essential (primary) hypertension; E78.2 Mixed hyperlipidemia | CPT/HCPCS: 99214 ==

== ENCOUNTER 2023-07-20 15:40 | Inpatient (IN) | payer OTHER, SELFPAY ==
[2023-07-20 15:42] VITALS: BP 153/93; PULSE 78; RESP 18; TEMP 36.7; O2SAT 97; BMI 24.2
--- NOTE | 2023-07-20 15:48 | ECG_ITS ---
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 Measurements Intervals [place] Rate: 72 P: 37 RI: 188 QRS: 29 QRSD: 84 T: 32 QT: 350 QTc: 384 Interpretive Statements SINUS RHYTHM Compared to ECG 06/30/2023 03:35:52 Sinus bradycardia no longer present Electronically Signed On 07-20-2023 17:21:41 CDT by Mateo Lantigua M.D. [email or web address]
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
--- NOTE | 2023-07-20 16:11 | XRR_ITS ---
PROCEDURE INFORMATION: Exam: XR Chest Exam date and time: 07/20/2023 4:21 PM Age: 73 years old Clinical indication: Chest pressure; Patient HX: Chest pain TECHNIQUE: Imaging protocol: Radiologic exam of the chest. Views: 1 view. COMPARISON: CR (CHEST, ) 06/30/2023 1:46 AM FINDINGS: Lungs: No focal airspace disease. Pleural spaces: Unremarkable. No pleural effusion. No pneumothorax. Heart/Mediastinum: Cardiomediastinal silhouette is within normal limits. Bones/joints: Unremarkable. XR/XR chest 1V portable [id number] IMPRESSION: No acute cardiopulmonary abnormality.
[2023-07-20 16:33] LABS: Basophils # 0.1 10^3/uL (0.0-0.1); Basophils % 0.5 %; Eosinophils # 0.2 10^3/uL (0.0-0.8); Eosinophils % 1.4 %; Hematocrit 47.3 % (37-53); Lymphocytes # 0.9 10^3/uL (0.8-4.8); Mean Corpuscular HGB Conc 34.9 g/dL (30-55); Mean Corpuscular Hemoglobin 32.7 pg (27-33); Mean Corpuscular Volume 93.7 fl (82-101); Mean Platelet Volume 8.9 fL (7.4-10.4); Monocytes # 0.6 10^3/uL (0.2-0.9); Monocytes % 4.3 %; Neutrophils # 11.36 10^3/uL (1.8-7.7); Neutrophils % 86.3 %; Nucleated Red Blood Cells % 0 %; Platelet Count 335 10^3/cmm (157-399); Red Blood Count 5.05 10^6/uL (3.85-5.65); Red Cell Distribution Width 12.2 % (12.1-15.1); White Blood Count 13.15 10^3/uL (3.29-11.43)
[2023-07-20 16:50] LABS: Troponin(5th) Baseline 53 ng/L (0-15)
[2023-07-20 16:52] LABS: Alanine Aminotransferase 26 U/L (0-41); Albumin Level 4.2 g/dL (3.5-5.2); Alkaline Phosphatase 55 U/L (40-130); Anion Gap 14.5 (5-19); Aspartate Amino Transferase 23 U/L (0-40); Blood Urea Nitrogen 22 mg/dL (8-23); Calcium 9.5 mg/dL (8.5-10.5); Carbon Dioxide 26 mmol/L (22-29); Chloride 103 mmol/L (98-107); Globulin 2.8 g/dL (1.3-4.6); Glucose 95 mg/dL (65-115); Osmolality Calculated 291 mOsm/kg (285-295); Potassium 4.5 mmol/L (3.5-5.1); Sodium 139 mmol/L (136-145); Total Bilirubin 0.3 mg/dL (0.15-1.2)
[2023-07-20 17:53] VITALS: BP 125/73; RESP 18
--- NOTE | 2023-07-20 18:11 | ECG_ITS ---
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 Measurements Intervals [place] Rate: 63 P: 42 DE: 188 QRS: 32 QRSD: 92 T: 38 QT: 373 QTc: 384 Interpretive Statements SINUS RHYTHM ST ELEVATION, PROBABLY EARLY REPOLARIZATION [ST ELEVATION WITH NORMALLY INFLECTED T-WAVE] Compared to ECG 07/20/2023 15:44:58 ST (T wave) deviation now present Early repolarization now present Electronically Signed On 07-20-2023 17:24:37 CDT by Mateo Lantigua M.D. [id number]
[2023-07-20 19:09] VITALS: BP 144/77
[2023-07-20 19:11] LABS: Troponin 5 2HR 75.14 ng/L (0-15)
[2023-07-20 19:20] LABS: Troponin 5 2HR Delta 22.14 ABS# (0-10)
[2023-07-20 21:13] VITALS: BP 147/79; PULSE 59; RESP 13; O2SAT 94
[2023-07-20] MEDS: enoxaparin 80 mg/0.8 mL Syringe 70 MG SUBCUT (21:23)
[2023-07-20 22:00] VITALS: BP 171/85; PULSE 69; RESP 18; TEMP 36.5; O2SAT 96
[2023-07-20 22:59] VITALS: BP 171/85; PULSE 61; PULSE 69; RESP 18; TEMP 36.5; O2SAT 96
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
[2023-07-20 23:12] LABS: Troponin 5 6HR 134.7 ng/L (0-15); Troponin 5 6HR Delta 81.7 ng/L (0-12)
[2023-07-20] MEDS: carvedilol 25 mg Tablet PO (23:35)
[2023-07-20] MEDS: isosorbide mononitrate ER 30 mg Tablet PO (23:35)
[2023-07-20] MEDS: amlodipine 5 mg Tablet 2.5 MG PO (23:36)
[2023-07-20] MEDS: clopidogrel 75 mg Tablet PO (23:36)
[2023-07-20] MEDS: atorvastatin 40 mg Tablet 20 MG PO (23:36)
[2023-07-20] MEDS: sodium chloride 0.9% 1,000 ML 75 ML IV (23:37)
[2023-07-20] MEDS: famotidine 20 mg/2 mL INJ IVP (23:37)
[2023-07-21] VITALS (140 sets, daily range): BP systolic 94–142; BP diastolic 43–79; PULSE 48–75; RESP 8–30; TEMP 36.6–36.8; O2SAT 79–97
[2023-07-21 04:09] LABS: Basophils % 0.5 %; Eosinophils # 0.5 10^3/uL (0.0-0.8); Eosinophils % 5.5 %; Hematocrit 41.6 % (37-53); Lymphocytes # 1.9 10^3/uL (0.8-4.8); Lymphocytes % 21.2 %; Mean Corpuscular HGB Conc 33.9 g/dL (30-55); Mean Corpuscular Hemoglobin 32.4 pg (27-33); Mean Corpuscular Volume 95.6 fl (82-101); Mean Platelet Volume 9.1 fL (7.4-10.4); Monocytes # 0.8 10^3/uL (0.2-0.9); Monocytes % 8.6 %; Neutrophils # 5.65 10^3/uL (1.8-7.7); Neutrophils % 63.9 %; Nucleated Red Blood Cells % 0 %; Platelet Count 304 10^3/cmm (157-399); Red Blood Count 4.35 10^6/uL (3.85-5.65); Red Cell Distribution Width 12.4 % (12.1-15.1); White Blood Count 8.84 10^3/uL (3.29-11.43)
[2023-07-21 04:35] LABS: Alanine Aminotransferase 23 U/L (0-41); Albumin Level 3.5 g/dL (3.5-5.2); Alkaline Phosphatase 47 U/L (40-130); Anion Gap 11.1 (5-19); Aspartate Amino Transferase 42 U/L (0-40); Blood Urea Nitrogen 18 mg/dL (8-23); Calcium 8.4 mg/dL (8.5-10.5); Carbon Dioxide 26 mmol/L (22-29); Chloride 105 mmol/L (98-107); Globulin 2.5 g/dL (1.3-4.6); Glucose 93 mg/dL (65-115); Magnesium 2.2 mg/dL (1.7-2.3); Osmolality Calculated 288 mOsm/kg (285-295); Potassium 4.1 mmol/L (3.5-5.1); Sodium 138 mmol/L (136-145); Total Bilirubin 0.4 mg/dL (0.15-1.2)
[2023-07-21 04:40] LABS: NT Pro B Type Natriuretic Pept 169 pg/mL (0-450)
[2023-07-21] MEDS: thiamine 100 mg Tablet PO (08:18)
[2023-07-21] MEDS: carvedilol 25 mg Tablet PO (08:19)
[2023-07-21] MEDS: clopidogrel 75 mg Tablet PO (08:19)
[2023-07-21] MEDS: multivitamin therapeutic Tablet 1 TAB PO (08:19)
[2023-07-21] MEDS: atorvastatin 40 mg Tablet 20 MG PO (08:20)
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
--- NOTE | 2023-07-21 11:12 | XACV_ITS ---
Exam Room: [facility] Ht: 168 cm Wt: 68 kg BSA: 1.79 m2 Gender: Male : 1950 Any Known Allergies: No known allergies Exam Priority: Routine Procedure(s): Procedure Description: Diagnostic procedure Procedure Description: PCI procedure Procedure Description: Drug Eluting Coronary Stent Procedure Description: PTCA Procedure Description: Coronary Angiography Cara ROMEO; Diagnostic Cath Status: Urgent Diagnostic Findings * Patient with fairly typical pain, previous coronary artery disease and elevated troponin. Angiography done from the right radial artery. The distal right coronary artery, in the vicinity of the mid posterior descending artery is occluded. The remainder of the right coronary artery is normal. It is an extremely tortuous vessel with a anderson's crook. There is some collateral to the distal posterior descending artery from the LAD.. * The left main coronary artery is normal. The LAD has stents from the proximal throughout the midportion toward the distal portion of the vessel. There is minimal in-stent restenosis but no significant narrowing. The other vessels are normal as seen. The circumflex is unremarkable. There is some collateral flow to the distal right coronary artery from the septal branches of the LAD. PCI Status: Urgent PCI LVEF Assessed: No PCI Indication: NSTE - ACS Interventional Findings * The tortuosity and anderson's crook of the right coronary artery made placement of the guide difficult. Pushing the wire down the vessel created significant wire bias in at least 3 areas of the vessel. With some difficulty the wire was pushed through the lesion distally. With even more difficulty a balloon was placed and the lesion underwent angioplasty. Following this a 2 x 8 mm stent was placed. There was a reasonable angiographic result. Decision for PCI with Surgical Consult: No PCI for Multi-vessel Disease: No Conclusions 1. Thrombotic occlusion of the distal right coronary artery in the mid posterior descending artery. Angioplasty and stent undertaken with some difficulty due to the tortuosity of the vessel. Recommendations * Continued medical therapy. Interventional RX Recommendation: PCI w/o planned CABG Diagnostic RX Recommendation: PCI w/o planned CABG Anticoagulation: Heparin Pressures Phase:Rest AO : 109 / 60 ( 81 ) @ 1:32:00 PM 89 / 62 ( 76 ) @ 1:33:00 PM 103 / 70 ( 86 ) @ 1:38:00 PM 107 / 68 ( 87 ) @ 1:46:00 PM 102 / 65 ( 83 ) @ 1:51:00 PM Clinical Evaluation EBL: 5mL-10mL Procedural Details Procedure Consent Obtained. Current Diagnosis : Chest Pain. Pre-Procedure Time Out. Identified patient by full name and date of as verbalized by the patient/guarantor. Does the consent match the physician's order: Yes. Accurate & Complete Informed Consent: Yes. Inpatient/Outpatient History & Physical on Chart: Yes. If H&P is completed, is and addenduem needed: Yes; If yes, is the addendum complete: N/A. Visualize and Verify Site with Patient/Guarantor: N/A. Relevant Radiology Images available: Yes. Pre-op teaching completed and patient verbalized understanding. The risks, benefits, and alternatives of sedation and/or procedure were discussed by physician. The patient agrees to continue. Procedure started. Physician arrived. [facility] Clinical Fraility Score: 3: Managing Well. [place] Attendant Indications: ACS > 24 hours. Chest Pain Symptom Assessment: Atypical Angina. Correct patient, site and procedure confirmed by cath team. Current diagnosis: NSTEMI. PERRLA. Strong, equal hand docent coordinator bilaterally. Lungs clear x 5 lobes. IV Site on Arrival: 18 gauge in the left anticubital. IV Fluids: 0.9% NaCl at KVO. 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 Pre Procedural Pulses: right radial was 3+. Pre Procedural Pulses: bilateral dorsalis pedis was 1+. Pre Procedural Pulses: bilateral posterior tibial was 1+. Oxygen started at 2liters/min via nasal canula. right groin was prepped with chloroprep then draped in the usual sterile fashion. Baseline sample Acquired. HR: 56 BPM. right radial was prepped with chloroprep then draped in the usual sterile fashion. Physician scrubbed in. Immediate Pre-Procedure Time Out. Correct Patient: Yes; Correct Procedure: Yes; Correct Site: Yes; Correct Patient Position: Yes; Correct Supplies: Yes; Dried Flammable Prep: Yes; Blood Products Available: Yes;. Lidocaine 1% infiltrated to the right radial. Arterial access obtained. A 5 kyrgyz TIG catheter in over wire. Multiple views taken of right coronary artery. Catheter redirected to the LCA. Multiple views taken of left coronary artery. Catheter removed over the exchange wire. Sheath upsized to a 6 Fr. 6 kyrgyz JR 4 guide catheter was inserted over the wire. Runthrough guidewire was advanced through the guide catheter to lesion in the PDA. Inflation number : 1 A AB MINI TREK 2.00X8 RX BALLOON was prepped and advanced across the R PDA , then inflated to 12 CONOR for 0:23 seconds. Balloon out. Results checked. 2.0x8 Resolute [place] stent inserted to lesion in the PDA. Inflation Number : 2 A MDT R BARBIE 2.0X08 PERRY -Lot Number# [id number] EXP: 10/04/2024 was prepped and advanced across the R PDA. The stent was deployed at 12 CONOR for 0:31 seconds. Stent balloon out over wire. Results checked. Wire out. Guide catheter out. A TR Band was successful obtaining hemostatsis at the Right Radial artery insertion site. Post Procedure: Pulses reassessed and unchanged. PERRLA. Strong, equal hand docent coordinator bilaterally. No VTE prophylaxis required. Medication's Wasted: Nitro = 49.8 mg. Medication's Wasted: Heparin = 1000 units. Total IV fluids: 50 mL. Vital chart was stopped. Complications: None. Estimated blood loss: 5mL-10mL. Responsiveness - Normal response to verbal stimuli; alert and oriented, PERRLA. Airway - Unaffected, no intervention required; spontaneous ventilation. Circulation: W/N/L, pulses unchanged. Nausea/Vomiting: No. Procedure completed. Patient transferred by bed to 1st floor. Access Site Site: Right Radial artery Sheath Size: 5 Fr Hemostasis Method: TR Band Hemostasis Success: Successful Procedure Medications Start: 12:03 PM Stop: 12:03 PM Medication: Versed 1 mg and Fentanyl 25 mcg Amount: 1 Route: I.V. Start: 12:22 PM Stop: 12:22 PM Medication: Versed Amount: 1 mg Route: I.V. Start: 12:30 PM Stop: 12:30 PM Medication: Nitrogylcerin Amount: 200 mcg Route: I.A. Start: 12:40 PM Stop: 12:40 PM Medication: Heparin Amount: 5000 units Route: I.V. Start: 12:47 PM Stop: 12:47 PM Medication: Versed Amount: 1 mg Route: I.V. I, the attending physician, have reviewed and verified all procedure medications. Yes, all medications given per verbal order History/Risk Factors Hypertension: Yes Dyslipidemia: Yes Peripheral Arterial Disease (PAD): No Myocardial Infarction ([place]): No Obesity: No Renal Disease: No Prior Interventions PCI: Yes CABG: No Valve Surgery: No Report Signatures Finalized by Dr. Gordon Marroquin MD on 07/21/2023 01:31 PM
[2023-07-21] MEDS: diphenhydrAMINE 50 mg Capsule PO (11:19)
[2023-07-21] MEDS: famotidine 20 mg/2 mL INJ IVP ×2 (11:20→22:18)
--- NOTE | 2023-07-21 15:53 | PM.PN ---
Subjective Subjective: Admitted overnight. H&P and labs appreciated. Patient seen postcardiac catheterization. Underwent cardiac angiogram earlier in the day with cardiology and underwent PCI to distal RCA in mid PDA. Tolerated procedure well. Blood work appreciated from earlier today morning. Currently denies any chest pain. Saturating well on room air. Vitals/I&O/Wt Last Vital Signs Temp 97.8 F 07/21/23 09:05 Pulse 59 L 07/21/23 13:55 Resp 14 07/21/23 13:55 BP 96/43 07/21/23 13:55 Pulse Ox 92 07/21/23 13:55 O2 Del Method Room Air 07/21/23 04:00 07/21/23 07/21/23 07/21/23 06:59 14:59 22:59 Intake Total 600 / 600 1000 / 1600 Output Total 150 / 325 Balance -150 / -325 600 / 600 1000 / 1600 Weight last 48 hrs Weight 68.039 kg Physical Exam Narrative: General: No acute distress, AO x3 HEENT: PERRLA, pupils bilaterally equal and reactive Chest: Normal vesicular breath sounds, no added sounds, equal good air entry bilaterally CVS: S1-S2 regular, no murmurs, no tachycardia, no gallops, no rubs Abdomen: Soft, nontender, no organomegaly, bowel sounds present Neuro: No focal deficits, no facial deformity, AO x3, power 5/5 in all limbs Data 07/21/23 03:46 07/21/23 03:46 A&P Assessment and plan (1) Unstable angina: (2) Elevated troponin: (3) Presence stent in posterior descending branch right coronary artery: (4) Atherosclerotic heart disease of [place] coronary artery with other forms of angina pectoris: (5) Hypertension: Qualifiers: Hypertension type: essential hypertension Qualified Code(s): I10 - Essential (primary) hypertension (6) Hyperlipidemia: Qualifiers: Hyperlipidemia type: mixed hyperlipidemia Qualified Code(s): E78.2 - Mixed hyperlipidemia Plan Unstable angina: Appreciate cardiology recommendations. Post cardiac angiogram and PCI to distal RCA and PDA. Continue aspirin, Plavix, statin. Check echocardiogram. Check A1c, lipid panel. Hypertension: Goal blood pressure less than 140/90 mmHg. Mean over 65. Blood pressure today morning soft. At home takes Imdur 30 mg daily, Coreg 25 mg twice daily, amlodipine 2.5 mg daily. Hold antihypertensives for now. Will restart as per blood pressure monitoring. Cardiac diet Lovenox for DVT prophylaxis Protonix OPD prophylaxis. Attestations Medical Necessity Statement*: Requires further hospitalization for management of unstable angina, post PCI status while blood pressures are monitored Diagnoses Unstable angina I20.0 Elevated troponin R77.8 Presence stent in posterior descending branch right coronary artery Z95.5 Atherosclerotic heart disease of [place] coronary artery with other forms of angina pectoris I25.118 Hypertension I10 Hypertension type: essential hypertension Hyperlipidemia E78.2 Hyperlipidemia type: mixed hyperlipidemia
--- NOTE | 2023-07-21 15:59 | USCV_ITS ---
Pacheco Gomez Age: 73 Gender: M : 1950 Exam Date: 07/21/2023 16:26 Ordering Phys: Jeet Rao MD Technologist: Noe Kirk [place] [facility] [place]: CAD BP: 119 / 63 HR: 55 Rhythm: Sinus Technical Quality: Adequate MEASUREMENTS (Male / Female) Normal Values 2D ECHO LVOT Diameter 2.0 cm LV Ejection Fraction MOD 2C 61.2 % LV Ejection Fraction 2C AL 61.0 % LA Diameter 3.5 cm LA Width 3.1 cm LA Height 4.0 cm RA Width 2.3 cm RA Height 4.0 cm Aorta at Sinotubular Diameter 2.2 cm IVC Diameter 2.0 cm M-MODE Aortic Annulus Diameter 2.8 cm LA Ao Ratio MM 1.3 MV E Point Septal Separation 0.7 cm DOPPLER AV Peak Velocity 124.0 cm/s LVOT Peak Velocity 77.0 cm/s AV Area Cont Eq vti 2.0 cm squared AV Area Cont Eq pk 2.0 cm squared MV Peak Velocity 74.0 cm/s MV Area PHT 5.0 cm squared Mitral E to A Ratio 1.2 MV E' Velocity 38.5 cm/s Mitral E to MV E' Ratio 7.7 Mitral E to LV E' Lateral Ratio 7.7 Mitral E to LV E' Septal Ratio 7.8 TR Peak Velocity 240.5 cm/s TR Peak Gradient 23.1 mmHg TR Mean Velocity 178.9 cm/s TR Mean Gradient 13.9 mmHg TR Velocity Time Integral 77.0 cm Right Atrial Pressure 3.0 mmHg Pulmonary Artery Systolic Pressu 26.1 mmHg PV Peak Velocity 70.0 cm/s RV Acceleration Time 0.1 s RV Ejection Time 0.3 s RV AcT/ET 0.4 FINDINGS Left Ventricle Normal left ventricular size, systolic function and wall thickness, with no regional wall motion abnormalities. Grade I/IV diastolic dysfunction (abnormal relaxation filling pattern), normal to mildly elevated filling pressures. Left ventricular ejection fraction is estimated at 60 %. Right Ventricle Normal right ventricular size and systolic function. Normal right ventricular systolic pressure. Right Atrium The right atrium is normal in size. Left Atrium The left atrium is normal in size. Mitral Valve Structurally normal mitral valve. Trace mitral valve regurgitation. Aortic Valve Structurally normal trileaflet aortic valve. No aortic valve stenosis. Mild aortic valve regurgitation. Tricuspid Valve Structurally normal tricuspid valve. Trace tricuspid valve regurgitation. Pulmonic Valve Structurally normal pulmonic valve. Pericardium Normal pericardium without effusion. Aorta Normal ascending aorta dimension. IVC The inferior vena cava appears normal. CONCLUSIONS Normal left ventricular size, systolic function and wall thickness, with no regional wall motion abnormalities. Grade I/IV diastolic dysfunction (abnormal relaxation filling pattern), normal to mildly elevated filling pressures. Left ventricular ejection fraction is estimated at 60 %. Structurally normal mitral valve. Trace mitral valve regurgitation. Structurally normal trileaflet aortic valve. No aortic valve stenosis. Mild aortic valve regurgitation. No change from the previous study dated April 12, 2016 Dr. Gordon Marroquin MD (Electronically Signed) Final Date: 22 July 2023 08:10 S
[2023-07-21 17:08] LABS: Thyroid Stimulating Hormone 5.94 uIU/mL (0.27-4.20)
[2023-07-21 17:15] LABS: Iron 99 ug/dL (59-158); Percent Saturation 46.6 % (20-50); Total Iron Binding Capacity 212 mcg/dl; Unsaturated Iron Binding 113 ug/dL (112-347)
[2023-07-21 17:16] LABS: Vitamin B12 611 pg/mL (232-1245)
[2023-07-21] MEDS: sodium chloride 0.9% 1,000 ML 100 ML IV (17:41)
--- NOTE | 2023-07-21 18:35 | PC.NURSE ---
At approx. 1830 tr band removed, no drainage noted, no hematoma present, dressing clean dry and intact.
[2023-07-21] MEDS: enoxaparin 30 mg/0.3 mL Syringe SUBCUT (20:18)
[2023-07-21] MEDS: trazodone 150 mg Tablet PO (20:18)
[2023-07-22] VITALS: BP 115/62; PULSE 56; RESP 17; TEMP 36.9; O2SAT 92
[2023-07-22 04:00] VITALS: BP 124/54; PULSE 53; RESP 15; TEMP 36.6; O2SAT 94
[2023-07-22 04:16] LABS: Basophils # 0.1 10^3/uL (0.0-0.1); Basophils % 0.7 %; Eosinophils # 0.5 10^3/uL (0.0-0.8); Eosinophils % 6.9 %; Hematocrit 42.3 % (37-53); Lymphocytes # 1.8 10^3/uL (0.8-4.8); Lymphocytes % 23.7 %; Mean Corpuscular HGB Conc 33.8 g/dL (30-55); Mean Corpuscular Hemoglobin 32.7 pg (27-33); Mean Corpuscular Volume 96.8 fl (82-101); Mean Platelet Volume 9.2 fL (7.4-10.4); Monocytes # 0.7 10^3/uL (0.2-0.9); Monocytes % 8.5 %; Neutrophils % 59.9 %; Nucleated Red Blood Cells % 0 %; Platelet Count 289 10^3/cmm (157-399); Red Blood Count 4.37 10^6/uL (3.85-5.65); Red Cell Distribution Width 12.5 % (12.1-15.1); White Blood Count 7.67 10^3/uL (3.29-11.43)
[2023-07-22 04:32] LABS: Chol HDL Ratio 6.35 mg/dL (1.0-5.00); Cholesterol 197 mg/dL (0-200); HDL Cholesterol 31 mg/dL (60-100); LDL Cholesterol Calculated 130 mg/dL (50-129); Triglycerides 182 mg/dL (0-150); VLDL Cholestrol Calculation 36 mg/dL (0-30)
[2023-07-22 04:33] LABS: Alanine Aminotransferase 20 U/L (0-41); Albumin Level 3.6 g/dL (3.5-5.2); Alkaline Phosphatase 51 U/L (40-130); Anion Gap 11.3 (5-19); Aspartate Amino Transferase 33 U/L (0-40); Blood Urea Nitrogen 18 mg/dL (8-23); Calcium 8.5 mg/dL (8.5-10.5); Carbon Dioxide 27 mmol/L (22-29); Chloride 106 mmol/L (98-107); Globulin 2.3 g/dL (1.3-4.6); Glucose 93 mg/dL (65-115); Osmolality Calculated 292 mOsm/kg (285-295); Potassium 4.3 mmol/L (3.5-5.1); Sodium 140 mmol/L (136-145); Total Bilirubin 0.4 mg/dL (0.15-1.2); Total Protein 5.9 g/dL (6.6-8.7)
[2023-07-22 04:42] LABS: Estmated Average Glucose 117; Hemoglobin A1C 5.7 % (4.0-6.0)
[2023-07-22 06:00] VITALS: PULSE 52
[2023-07-22 06:00] LABS: Folate Level < 20.0 ng/mL (4.5-32.2)
--- NOTE | 2023-07-22 06:24 | PM.PN ---
Subjective Subjective: Yesterday the patient underwent angiography. The very distal end of the right coronary artery, the posterior descending artery, was occluded by thrombus. This is a very small vessel but large enough to have given him symptoms. The artery is very tortuous and was difficult to intervene upon but finally a stent was placed. He has had an uneventful night. No further chest pain. No complications at the entry site. Vitals/I&O/Wt Last Vital Signs Temp 97.8 F 07/22/23 04:00 Pulse 52 L 07/22/23 06:00 Resp 15 07/22/23 04:00 BP 124/54 07/22/23 04:00 Pulse Ox 94 07/22/23 04:00 O2 Del Method Room Air 07/22/23 04:00 07/21/23 07/21/23 07/22/23 14:59 22:59 06:59 Intake Total 600 / 600 1720 / 2320 1480 / 3800 Output Total 500 / 500 1300 / 1800 Balance 600 / 600 1220 / 1820 180 / 2000 Weight last 48 hrs Weight 150 lb Physical Exam Narrative: GENERAL: In general he looks and feels well HEENT: Exam within normal limits. NECK: Supple without jugular vein distention. The carotid upstroke is normal without bruits. BACK: Exam normal. LUNGS: Clear. HEART: Regular rate and rhythm. ABDOMEN: Benign without organomegaly or tenderness. EXTREMITIES: No edema. Right radial artery entry site is flat, dry without hematoma or bleeding. NEUROLOGIC: Exam normal. SKIN: Unremarkable. Data 07/22/23 03:37 07/22/23 03:37 A&P Assessment and plan (1) Presence stent in posterior descending branch right coronary artery: (2) Unstable angina: (3) Elevated troponin: (4) Palpitations: (5) Atherosclerotic heart disease of [place] coronary artery with other forms of angina pectoris: (6) Sleep apnea: Qualifiers: Sleep apnea type: obstructive Qualified Code(s): G47.33 - Obstructive sleep apnea (adult) (pediatric) (7) Hypertension: Qualifiers: Hypertension type: essential hypertension Qualified Code(s): I10 - Essential (primary) hypertension (8) Hyperlipidemia: Qualifiers: Hyperlipidemia type: mixed hyperlipidemia Qualified Code(s): E78.2 - Mixed hyperlipidemia Plan He should be able to go home today. Medications should be his admission medications to include amlodipine, atorvastatin, Coreg, Plavix, isosorbide and aspirin should be added. We will call him in a week for a follow-up appointment. Attestations Medical Necessity Statement*: Available for discharge today and Moderate Time for a total of 30 minutes, includes reviewing past or interval history, examining/interviewing patient, placing orders, counseling patient/family/other support, updating patient/family/other support, discussing plan of care with staff, communicating with other healthcare providers and documenting encounter Diagnoses Presence stent in posterior descending branch right coronary artery Z95.5 Unstable angina I20.0 Elevated troponin R77.8 Palpitations R00.2 Atherosclerotic heart disease of [place] coronary artery with other forms of angina pectoris I25.118 Sleep apnea G47.33 Sleep apnea type: obstructive Hypertension I10 Hypertension type: essential hypertension Hyperlipidemia E78.2 Hyperlipidemia type: mixed hyperlipidemia
[2023-07-22 07:31] LABS: Glucose Point of Care 87 mg/dL (70-110)
[2023-07-22 08:00] VITALS: BP 121/63; PULSE 64; RESP 17; TEMP 35.4; O2SAT 93
[2023-07-22] MEDS: atorvastatin 40 mg Tablet 20 MG PO (08:21)
[2023-07-22] MEDS: multivitamin therapeutic Tablet 1 TAB PO (08:21)
[2023-07-22] MEDS: aspirin 81 mg EC Tablet PO (08:21)
[2023-07-22] MEDS: thiamine 100 mg Tablet PO (08:22)
[2023-07-22] MEDS: clopidogrel 75 mg Tablet PO (08:22)
--- NOTE | 2023-07-22 09:50 | P.DS_ITS ---
Discharge Providers Date of Admission: 07/21/23 13:29 Date of Discharge: July 22, 2023 Attending Provider at Admission: Josselin Rodriguez MD Attending Provider at Discharge: Jeet Rao MD Consults: Cardiology: Dr. Marroquin Primary Care Provider: Danielle Live MD Diagnoses at Discharge Discharge Diagnosis (1) Presence stent in posterior descending branch right coronary artery: Status: Acute (2) Unstable angina: Status: Acute (3) Elevated troponin: Status: Acute (4) Palpitations: Status: Acute (5) Atherosclerotic heart disease of [place] coronary artery with other forms of angina pectoris: Status: Acute (6) Sleep apnea: Status: Acute Qualifiers: Sleep apnea type: obstructive Qualified Code(s): G47.33 - Obstructive sleep apnea (adult) (pediatric) (7) Hypertension: Status: Acute Qualifiers: Hypertension type: essential hypertension Qualified Code(s): I10 - Essential (primary) hypertension (8) Hyperlipidemia: Status: Acute Qualifiers: Hyperlipidemia type: mixed hyperlipidemia Qualified Code(s): E78.2 - Mixed hyperlipidemia Reason for Visit Reason for Visit: chest pain Hospital Course Hospital Course Pacheco Gomez is a 73 year old male with a known history of coronary artery disease.? He has previously placed stents at least to the LAD.? He has never been a smoker.? He has hypertension, dyslipidemia, sleep apnea, diverticular disease and colon polyps.? He came to the emergency room with chest pain.? He had been outside working with his honeybees.? After working with them for a while he developed chest pain which was severe.? He went in the house and took 2 nitroglycerin which did not help.? He then asked his to call 911.? They gave him 4 baby aspirin which he said to ease the pain a little bit.? By the time he arrived here the pain was almost completely gone. His troponins are 53, 75 and 134.? His CBC and electrolytes were normal.? His EKG reveals sinus rhythm with early repolarization and no other ST or T wave changes.? He has had some wide-complex tachycardia by telemetry strips. He was in the emergency room on the of last month with chest pain.? His labs and EKGs were okay.? He was back in the emergency room on the of last month with abdominal pain and diverticular disease.? A 14-day event monitor in February of this year did not show any obvious abnormalities.? His last angiogram was just short of 2 years ago which revealed minimal in-stent restenosis and no other coronary artery disease. Cardiology was consulted. He underwent cardiac angiogram and PCI to distal RCA with mid PDA. He tolerated the procedure well. His hospitalization was otherwise unremarkable. During hospitalization he was found to have slightly lower blood pressure for which his antihypertensives were adjusted. He has been discharged hemodynamically stable condition advised to follow-up with his primary care provider and with nurse practitioner from cardiology office for the next 1 week. Physical Exam Narrative: General: No acute distress, AO x3 HEENT: PERRLA, pupils bilaterally equal and reactive Chest: Normal vesicular breath sounds, no added sounds, equal good air entry bilaterally CVS: S1-S2 regular, no murmurs, no tachycardia, no gallops, no rubs Abdomen: Soft, nontender, no organomegaly, bowel sounds present Neuro: No focal deficits, no facial deformity, AO x3, power 5/5 in all limbs Discharge Data Studies Completed and Pending Completed Studies During Hospitalization Category Date Time Status SCIENTIFIC PROCESS OPERATOR request for service Routine Exams 07/21/23 11:12 Completed XR chest 1V portable [id number] Stat Exams 07/20/23 16:11 Completed CV. echo complete* [id number] Routine Ultrasound 07/21/23 15:59 Completed Pending at discharge Category Date Time Status MAG [Magnesium] AM LABS Lab 07/23/23 04:00 Ordered MAG [Magnesium] AM LABS Lab 07/24/23 04:00 Ordered Radiology Impressions Chest X-Ray 07/20/23 16:11 IMPRESSION: No acute cardiopulmonary abnormality. Laboratory Results WBC 7.67 10^3/uL (3.29-11.43) 07/22/23 03:37 RBC 4.37 10^6/uL (3.85-5.65) 07/22/23 03:37 Hgb 14.30 g/dL (11.27-16.99) 07/22/23 03:37 Hct 42.3 % (37-53) 07/22/23 03:37 MCV 96.8 fl (82-101) 07/22/23 03:37 MCH 32.7 pg (27-33) 07/22/23 03:37 MCHC 33.8 g/dL (30-55) 07/22/23 03:37 RDW 12.5 % (12.1-15.1) 07/22/23 03:37 Plt Count 289 10^3/cmm (157-399) 07/22/23 03:37 MPV 9.2 fL (7.4-10.4) 07/22/23 03:37 Neut % (Auto) 59.9 % 07/22/23 03:37 Lymph % (Auto) 23.7 % 07/22/23 03:37 [place] % (Auto) 8.5 % 07/22/23 03:37 Eos % (Auto) 6.9 % 07/22/23 03:37 Baso % (Auto) 0.7 % 07/22/23 03:37 Neut # (Auto) 4.60 10^3/uL (1.8-7.7) 07/22/23 03:37 Lymph # (Auto) 1.8 10^3/uL (0.8-4.8) 07/22/23 03:37 [place] # (Auto) 0.7 10^3/uL (0.2-0.9) 07/22/23 03:37 Eos # (Auto) 0.5 10^3/uL (0.0-0.8) 07/22/23 03:37 Baso # (Auto) 0.1 10^3/uL (0.0-0.1) 07/22/23 03:37 Nucleated RBC % (auto) 0 % 07/22/23 03:37 Nucleated RBCs # 0.0 /100WBC 07/22/23 03:37 Sodium 140 mmol/L (136-145) 07/22/23 03:37 Potassium 4.3 mmol/L (3.5-5.1) 07/22/23 03:37 Chloride 106 mmol/L (98-107) 07/22/23 03:37 Carbon Dioxide 27 mmol/L (22-29) 07/22/23 03:37 Anion Gap 11.3 (5-19) 07/22/23 03:37 BUN 18 mg/dL (8-23) 07/22/23 03:37 Creatinine 1.0 mg/dL (0.7-1.2) 07/22/23 03:37 GFR Calculation Not Reportable 07/22/23 03:37 Glucose 93 mg/dL (65-115) 07/22/23 03:37 POC Glucose 87 mg/dL (70-110) 07/22/23 06:37 Estimat Average Glucose 117 07/22/23 03:37 Hemoglobin A1c 5.7 % (4.0-6.0) 07/22/23 03:37 Calculated Osmolality 292 mOsm/kg (285-295) 07/22/23 03:37 Calcium 8.5 mg/dL (8.5-10.5) 07/22/23 03:37 Magnesium 2.0 mg/dL (1.7-2.3) 07/22/23 03:37 Iron 99 ug/dL (59-158) 07/21/23 03:46 TIBC 212 mcg/dl 07/21/23 03:46 % Saturation 46.6 % (20-50) 07/21/23 03:46 Unsat Iron Binding 113 ug/dL (112-347) 07/21/23 03:46 Total Bilirubin 0.4 mg/dL (0.15-1.2) 07/22/23 03:37 AST 33 U/L (0-40) 07/22/23 03:37 ALT 20 U/L (0-41) 07/22/23 03:37 Alkaline Phosphatase 51 U/L (40-130) 07/22/23 03:37 Troponin T Baseline 53 ng/L (0-15) H 07/20/23 16:20 Troponin T 120 Minute 75.14 ng/L (0-15) H 07/20/23 18:20 Delta Troponin T 22.14 ABS# (0-10) H* 07/20/23 18:20 Troponin T Hi Sens 6Hr 134.7 ng/L (0-15) H 07/20/23 22:30 Troponin T Hi Sens 6Hr Delta 81.7 ng/L (0-12) H* 07/20/23 22:30 NT-Pro-B Natriuret Pep 169 pg/mL (0-450) 07/21/23 03:46 Total Protein 5.9 g/dL (6.6-8.7) L 07/22/23 03:37 Albumin 3.6 g/dL (3.5-5.2) 07/22/23 03:37 Globulin 2.3 g/dL (1.3-4.6) 07/22/23 03:37 Triglycerides 182 mg/dL (0-150) H 07/22/23 03:37 Cholesterol 197 mg/dL (0-200) 07/22/23 03:37 LDL Cholesterol, Calc 130 mg/dL (50-129) H 07/22/23 03:37 Total VLDL Cholesterol 36 mg/dL (0-30) H 07/22/23 03:37 HDL Cholesterol 31 mg/dL (60-100) L 07/22/23 03:37 Cholesterol/HDL Ratio 6.35 mg/dL (1.0-5.00) H 07/22/23 03:37 Vitamin B12 611 pg/mL (232-1245) 07/21/23 03:46 Folate < 20.0 ng/mL (4.5-32.2) 07/22/23 03:37 TSH 5.94 uIU/mL (0.27-4.20) H 07/21/23 03:46 Procedures Performed Cardiac angiogram Diagnostic Cath Status: ? ? Urgent Diagnostic Findings ? * Patient with fairly typical pain, previous coronary artery disease and elevated troponin.? Angiography done from the right radial artery.? The distal right coronary artery, in the vicinity of the mid posterior descending artery is occluded.? The remainder of the right coronary artery is normal.? It is an extremely tortuous vessel with a anderson's crook. There is some collateral to the distal posterior descending artery from the LAD.. ? * The left main coronary artery is normal.? The LAD has stents from the proximal throughout the midportion toward the distal portion of the vessel. There is minimal in-stent restenosis but no significant narrowing.? The other vessels are normal as seen.? The circumflex is unremarkable.? There is some collateral flow to the distal right coronary artery from the septal branches of the LAD. PCI Status: ? ? Urgent PCI LVEF Assessed: ? ? No PCI Indication: ? ? NSTE - ACS Interventional Findings ? * The tortuosity and anderson's crook of the right coronary artery made placement of the guide difficult.? Pushing the wire down the vessel created significant wire bias in at least 3 areas of the vessel.? With some difficulty the wire was pushed through the lesion distally.? With even more difficulty a balloon was placed and the lesion underwent angioplasty.? Following this a 2 x 8 mm stent was placed.? There was a reasonable angiographic result. Decision for PCI with Surgical Consult: ? ? No PCI for Multi-vessel Disease: ? ? No Conclusions ? 1. Thrombotic occlusion of the distal right coronary artery in the mid posterior descending artery.? Angioplasty and stent undertaken with some difficulty due to the tortuosity of the vessel. Recommendations ? * Continued medical therapy. Vitals Last Vital Signs Temp 95.8 F L 07/22/23 08:00 Pulse 64 07/22/23 08:00 Resp 17 07/22/23 08:00 BP 121/63 07/22/23 08:00 Pulse Ox 93 07/22/23 08:00 O2 Del Method Room Air 07/22/23 08:00 Discharge Plan Discharge Patient Disposition: Home Condition: Stable Prescriptions: New aspirin [Adult Low Dose Aspirin] 81 mg tablet,delayed release (DR/EC) 81 mg PO DAILY Qty: 100 0RF carvedilol [Coreg] 6.25 mg tablet 6.25 mg PO BID Qty: 60 0RF Rx Instructions: must administer with a meal/food Continued thiamine HCl (vitamin B1) 100 mg tablet 100 mg PO QDAY multivitamin [Daily Multi-Vitamin] Tablet 1 tab PO QAM nitroglycerin [Nitrostat] 0.4 mg tablet, sublingual 0.4 mg SUBLINGUAL Q5M PRN (Reason: Chest Pain) clopidogrel [Plavix] 75 mg tablet 75 mg PO QDAY trazodone 100 mg tablet 150 mg PO QDAY Rx Instructions: at bedtime ibuprofen 600 mg Tablet 600 mg PO QID PRN (Reason: Pain) Changed atorvastatin [Lipitor] 40 mg tablet 40 mg PO QDAY Qty: 30 0RF Held isosorbide mononitrate 30 mg tablet extended release 24 hr 30 mg PO DAILY Hold Instructions: Resume on 08/06/23. Discontinued amlodipine 2.5 mg tablet 2.5 mg PO DAILY 30 Days Qty: 30 5RF carvedilol 25 mg tablet 25 mg PO DAILY Rx Instructions: must administer with a meal/food Discharge Orders: Discharge Order (Routine); Ordered 07/22/23 Ordered By: Jeet Rao Referrals: Danielle Live MD [Primary Care Provider] - 7-10 days Loni Frye FNP [Nurse Practitioner] - 7-10 days Discharge Diet: Cardiac Discharge Activity: Resume usual activity Patient Instructions: Opioid Safety Activity Restrictions/Additional Instructions: No lifting over 5 pounds for 2 days with the right upper extremity. Aspirin has been added to her medication list. Do not take amlodipine. Check your blood pressure daily at home and maintain a blood pressure diary and follow-up with a primary care provider and nurse practitioner from cardiology within next 1 week for further adjustment of blood pressure medications. For now hold off on taking Imdur. Dose of Coreg has been changed to 6.25 mg twice daily because of low blood pressure during hospitalization. Discharge Attestations Time Spent in Discharge Care*: greater than 30 min Specific Discharge Activities: educating patient, educating and/or supporting family/caregiver, discussing with pcp/other providers, discussing with case therapist/social workers/dc planners, documenting/other paperwork and evaluating patient/reviewing data Status at Discharge: Cognitive status at discharge: cognitively intact , Behavioral status at discharge: cooperative , Functional status at discharge: independent ambulation , Overall status at discharge: patient is back to baseline Quality Metrics Clinical Quality Measures [ No reported AMI, CVA or VTE this stay] Coding Level of Care Code 09161 Total time (in minutes) for Discharge: 50 Diagnoses Presence stent in posterior descending branch right coronary artery Z95.5 Unstable angina I20.0 Elevated troponin R77.8 Palpitations R00.2 Atherosclerotic heart disease of que[place] coronary artery with other forms of angina pectoris I25.118 Sleep apnea G47.33 Sleep apnea type: obstructive Hypertension I10 Hypertension type: essential hypertension Hyperlipidemia E78.2 Hyperlipidemia type: mixed hyperlipidemia
[2023-07-22 10:23] VITALS: BP 121/63; PULSE 64; RESP 17; TEMP 35.4; O2SAT 93
--- NOTE | 2023-07-22 11:00 | PC.NURSE ---
discharge instructions given and explained.pt and spouse verb understanding of instructions.dischaeged via w/c to exit at this time.
== END 2023-07-22 11:01 | disposition home or self-care (01) | DRG 247 ==
LOC: ER 21:06 → CSU 21:36
PROVIDERS: Family Medicine; Internal Medicine Cardiovascular Disease; Admitting Provider Internal Medicine; Emergency Provider Emergency Medicine; PCP Family Medicine; Visit Provider Student in an Organized Health Care Education/Training Program
PROC: 027034Z Dilation of Coronary Artery, One Artery with Drug-eluting Intraluminal Device, Percutaneous Approach (ICD-10-PCS; principal; 2023-07-21 12:00)
PROC: 027034Z Dilation of Coronary Artery, One Artery with Drug-eluting Intraluminal Device, Percutaneous Approach (ICD-10-PCS; 2023-07-21 12:00)
DX: I21.4 Non-ST elevation (NSTEMI) myocardial infarction (principal); Z95.5 Presence of coronary angioplasty implant and graft; I25.110 Atherosclerotic heart disease of native coronary artery with unstable angina pectoris; I10 Essential (primary) hypertension; E78.2 Mixed hyperlipidemia; G47.30 Sleep apnea, unspecified; Z79.02 Long term (current) use of antithrombotics/antiplatelets; Z79.891 Long term (current) use of opiate analgesic; K21.9 Gastro-esophageal reflux disease without esophagitis
CPT/HCPCS: 36415; 36416; 71045; 80053; 80061; 82607; 82746; 82962; 83036; 83540; 83550; 83735; 83880; 84443; 84484; 85025; 93005; 93306; 93454; 96367; 96372; 96376; 99152; 99153; 99285; C1725; C1769; C1874; C1887; C1894; C9600; G0378; J0461; J1644; J1650; J2250; J3010; J3490; J7030; Q0163; Q9967

== ENCOUNTER → 2023-08-08 10:50 | Outpatient (BNVA) | payer OTHER, SELFPAY | PROVIDERS: PCP Family Medicine; Visit Provider Nurse Practitioner Family | DX: I25.118 Atherosclerotic heart disease of native coronary artery with other forms of angina pectoris (principal); R00.0 Tachycardia, unspecified; R00.1 Bradycardia, unspecified | CPT/HCPCS: 36415; 80048; 83880; 84484; 93005; 99214 ==

== ENCOUNTER → 2023-10-01 11:14 | Outpatient (BNVA) | payer OTHER, SELFPAY | PROVIDERS: PCP Family Medicine; Visit Provider Internal Medicine Cardiovascular Disease | DX: R07.9 Chest pain, unspecified (principal); I25.118 Atherosclerotic heart disease of native coronary artery with other forms of angina pectoris; G47.33 Obstructive sleep apnea (adult) (pediatric); I10 Essential (primary) hypertension; E78.2 Mixed hyperlipidemia | CPT/HCPCS: 93005; 99214 ==

== ENCOUNTER 2023-12-20 11:48 | Emergency (ER) | payer OTHER, SELFPAY ==
[2023-12-20 12:05] VITALS: BP 131/83; PULSE 74; RESP 16; TEMP 36.7; O2SAT 94; BMI 25.9
--- NOTE | 2023-12-20 12:15 | ECG_ITS ---
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 Measurements Intervals [place] Rate: 83 P: 49 MI: 174 QRS: 40 QRSD: 82 T: 29 QT: 343 QTc: 405 Interpretive Statements SINUS RHYTHM Compared to ECG 08/08/2023 11:00:29 Bradycardia, nonsinus no longer present Atrial abnormality no longer present Early repolarization no longer present Electronically Signed On 12-21-2023 9:30:25 TRANSFER AND PUMPHOUSE OPERATOR CHIEF by Corby Fitzpatrick M.D. [id number]
--- NOTE | 2023-12-20 12:15 | XR_ITS ---
WS: [id number] XR chest 1V portable [id number] REASON FOR EXAM: cp FINDINGS: Moderate tortuosity and ectasia of the thoracic aorta. Previous coronary artery stent. Calcified granulomas disease bilaterally. Ill-defined lung opacity overlying the left costophrenic angle. Possibly an area of atelectasis. No other significant pulmonary parenchymal or pleural abnormality identified. Moderate changes of degenerative spondylosis in the mid and lower thoracic spine. Moderate osteoarthritis in the glenohumeral joint. Significant narrowing of the acromial humeral head interval which may indicate complete rotator cuff tendon tear. IMPRESSION: Small left lower lung opacity of unknown chronicity and significance. Potentially early pneumonitis.
[2023-12-20 13:05] LABS: Basophils % 0.6 %; Eosinophils # 0.4 10^3/uL (0.0-0.8); Lymphocytes # 1.2 10^3/uL (0.8-4.8); Lymphocytes % 18.3 %; Mean Corpuscular HGB Conc 34.2 g/dL (30-55); Mean Corpuscular Hemoglobin 32.2 pg (27-33); Mean Corpuscular Volume 94.1 fl (82-101); Mean Platelet Volume 9.4 fL (7.4-10.4); Monocytes # 0.6 10^3/uL (0.2-0.9); Monocytes % 8.8 %; Neutrophils # 4.17 10^3/uL (1.8-7.7); Nucleated Red Blood Cells % 0 %; Platelet Count 273 10^3/cmm (157-399); Red Blood Count 4.78 10^6/uL (3.85-5.65); Red Cell Distribution Width 12.2 % (12.1-15.1); White Blood Count 6.33 10^3/uL (3.29-11.43)
[2023-12-20 13:21] LABS: Troponin(5th) Baseline 7 ng/L (0-15)
[2023-12-20 13:22] LABS: Alanine Aminotransferase 29 U/L (0-41); Albumin Level 4.4 g/dL (3.5-5.2); Alkaline Phosphatase 66 U/L (40-130); Anion Gap 15.8 (5-19); Aspartate Amino Transferase 27 U/L (0-40); Blood Urea Nitrogen 19 mg/dL (8-23); Calcium 9.2 mg/dL (8.5-10.5); Carbon Dioxide 27 mmol/L (22-29); Chloride 102 mmol/L (98-107); Globulin 2.2 g/dL (1.3-4.6); Glucose 101 mg/dL (65-115); Lipase 58 U/L (13-60); Osmolality Calculated 292 mOsm/kg (285-295); Potassium 4.8 mmol/L (3.5-5.1); Sodium 140 mmol/L (136-145); Total Bilirubin 0.5 mg/dL (0.15-1.2); Total Protein 6.6 g/dL (6.6-8.7)
[2023-12-20 14:23] VITALS: RESP 18; O2SAT 99
[2023-12-20] MEDS: HYDROcodone-acetaminophen 5-325 mg Tablet 1 TAB PO (14:23)
--- NOTE | 2023-12-20 14:23 | ECG_ITS ---
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 Measurements Intervals [place] Rate: 69 P: 38 AK: 184 QRS: 24 QRSD: 89 T: 9 QT: 372 QTc: 400 Interpretive Statements SINUS RHYTHM EARLY REPOLARIZATION [ST ELEVATION WITH NORMALLY INFLECTED T-WAVE] Compared to ECG 12/20/2023 12:11:26 Early repolarization now present Electronically Signed On 12-21-2023 9:31:51 HEADSTART TEACHER by Corby Fitzpatrick M.D. [id number]
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
[2023-12-20 15:21] LABS: Troponin 5 2HR 6.96 ng/L (0-15)
[2023-12-20 15:26] LABS: Troponin 5 2HR Delta -0.04 ABS# (0-10)
--- NOTE | 2023-12-21 10:45 | PC.SOCIAL ---
Records faxed to [facility].
== END 2023-12-20 15:52 | disposition home or self-care (01) ==
PROVIDERS: Emergency Provider Emergency Medicine; PCP Family Medicine
DX: M54.6 Pain in thoracic spine (principal); Z79.02 Long term (current) use of antithrombotics/antiplatelets; Z79.82 Long term (current) use of aspirin; I25.10 Atherosclerotic heart disease of native coronary artery without angina pectoris; E78.5 Hyperlipidemia, unspecified; I10 Essential (primary) hypertension
CPT/HCPCS: 36415; 71045; 80053; 83690; 84484; 85025; 93005; 99285

== ENCOUNTER 2024-01-22 08:23 | Outpatient (CLI) | payer OTHER, SELFPAY ==
--- NOTE | 2024-01-22 08:45 | ECG_ITS ---
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 Interpretive Statements NAME OF STUDY: LEXISCAN SESTAMIBI STRESS TEST INDICATION: [CP, ] Procedure: At the baseline, the blood pressure was 143/63 mmHg with a heart rate of 59 bpm. The electrocardiogram showed normal sinus rhythm, normal axis with normal ST and T's. The Lexiscan was infused over a period of 20 seconds. A total of 0.4 mg of Lexiscan was infused. The stress phase was continued for a total of 5 minutes. Heart rate was at the end of stress phase was 68 bpm and a blood pressure of 119/63 mmHg. The EKG at the peak infusion revealed normal sinus rhythm with no significant ST-T wave changes. Sestamibi was injected 20 seconds after the Lexiscan infusion. Blood pressure at the end of recovery phase was 121/72 mmHg with a heart rate of 71 bpm. Conclusion: 1. Normal EKG response to Lexiscan infusion 2. No Lexiscan induced chest pain or cardiac arrhythmia. 3. Normal blood pressure and heart rate response. 4. Sestamibi/sestamibi perfusion scan pending; see separate report. Electronically Signed On 02-11-2024 11:36:28 CDT by Corby Fitzpatrick M.D. [id number]
--- NOTE | 2024-01-22 08:46 | NMCV_ITS ---
NM sean perf SPECT r/s* [id number] Pacheco Gomez Age: 73 Gender: M : 1950 Exam Date: 01/22/2024 09:44 Ordering Phys: Danielle Live MD Technologist: CASEY Gonzales Exam Location: [facility] Indications: EVALUATION AND TREATMENT STRESS TEST Please [facility] IMAGE PROTOCOL Rest/Stress 1 Lexiscan Day Radiopharmaceutical Dose (mCi) Administration Site Administered by Rest: Tc-99m 10.9 IV CASEY Crowley Sestamibi Stress:Tc-99m 32.3 IV CASEY Crowley Sestamibi Rest: 22-Jan-2024 60 Discovery 630 Stress: 22-Jan-2024 30 Discovery 630 0.4mg Lexiscan. Images obtained in supine and prone position. SPECT RESULTS Technical Quality: Excellent Raw Data Analysis: Normal Image Corrections: No attenuation or motion correction applied Summed Stress Score: 0 Summed Rest Score: 2 Summed Difference Score: 0 PERFUSION FINDINGS SPECT images demonstrate homogeneous tracer distribution throughout the myocardium. FUNCTIONAL RESULTS (calculated via Gated SPECT) Stress Image LV EF (%): 66 Stress EDV (mL):74 TID: 0.98 Stress ESV (mL):25 FUNCTIONAL FINDINGS: There is normal left ventricular systolic function. IMPRESSIONS 1. Normal myocardial perfusion imaging with no evidence of ischemia 2. LV systolic function is normal Corby Fitzpatrick MD (Electronically Signed) Final Date: 22 January 2024 11:47 S
[2024-01-22 09:02] VITALS: BMI 25.0
[2024-01-22] MEDS: regadenoson 0.4 Mg/5 ml Syringe 0.400000000000000022 MG IVP (10:30)
[2024-01-22 11:03] VITALS: BP 115/65; PULSE 71
== END 2024-01-22 08:24 | disposition home or self-care (01) ==
LOC: CDL 08:24
PROVIDERS: PCP Family Medicine; Visit Provider Family Medicine
DX: R07.9 Chest pain, unspecified (principal)
CPT/HCPCS: 36415; 78452; 93017; 96374; A9500; J2785

== ENCOUNTER → 2024-01-23 10:23 | Outpatient (BNVA) | payer OTHER, SELFPAY | PROVIDERS: PCP Family Medicine; Visit Provider Internal Medicine Cardiovascular Disease | DX: R07.9 Chest pain, unspecified (principal); I10 Essential (primary) hypertension; I25.118 Atherosclerotic heart disease of native coronary artery with other forms of angina pectoris; E78.2 Mixed hyperlipidemia | CPT/HCPCS: 93005; 99214 ==

== ENCOUNTER → 2024-03-25 14:15 | Outpatient (BNVA) | payer OTHER, SELFPAY | PROVIDERS: PCP Family Medicine; Visit Provider Internal Medicine Cardiovascular Disease | DX: I25.118 Atherosclerotic heart disease of native coronary artery with other forms of angina pectoris (principal); I10 Essential (primary) hypertension; E78.2 Mixed hyperlipidemia; R42 Dizziness and giddiness | CPT/HCPCS: 99214 ==

== ENCOUNTER → 2024-07-24 08:20 | Outpatient (BNVA) | payer OTHER, SELFPAY | PROVIDERS: PCP Family Medicine; Visit Provider Nurse Practitioner Family | DX: I25.118 Atherosclerotic heart disease of native coronary artery with other forms of angina pectoris (principal); I10 Essential (primary) hypertension | CPT/HCPCS: 99214 ==

== ENCOUNTER 2024-08-12 09:23 | Emergency (ER) | payer OTHER, SELFPAY ==
[2024-08-12] VITALS (34 sets, daily range): BP systolic 98–158; BP diastolic 60–81; PULSE 58–89; RESP 11–25; TEMP 36.5; O2SAT 89–96; BMI 25.7
--- NOTE | 2024-08-12 09:25 | ECG_ITS ---
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 Measurements Intervals [place] Rate: 82 P: 11 MI: 148 QRS: 35 QRSD: 93 T: 46 QT: 336 QTc: 394 Interpretive Statements SINUS RHYTHM Compared to ECG 12/20/2023 14:23:34 Early repolarization no longer present Electronically Signed On 08-12-2024 16:25:41 CDT by Corby Fitzpatrick M.D. [email or web address] ([email or web address] [email or web address].Dovo/store/NU/[id number] f
--- NOTE | 2024-08-12 09:26 | XR_ITS ---
WS: [id number] Exam: XR chest 1V portable [id number] Date/Time of Exam: 08/12/2024 9:27 AM Reason For Exam: chest pain Comparison 12/20/2023. Lungs are clear and fully expanded. Mild bibasal plaque atelectasis. No pleural effusions. Signs of c oronary artery stenting. Cardiomediastinal silhouette is otherwise unremarkable. Bony structures are intact. Moderate degenerative change of both shoulders. XR/XR chest 1V portable [id number] IMPRESSION: 1. Bibasal plaque atelectasis. No acute cardiopulmonary finding.
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
[2024-08-12 10:04] LABS: Basophils % 0.5 %; Eosinophils # 0.6 10^3/uL (0.0-0.8); Eosinophils % 9.9 %; Hematocrit 44.8 % (37-53); Lymphocytes # 1.4 10^3/uL (0.8-4.8); Lymphocytes % 22.7 %; Mean Corpuscular HGB Conc 34.8 g/dL (30-55); Mean Corpuscular Hemoglobin 32.6 pg (27-33); Mean Corpuscular Volume 93.7 fl (82-101); Mean Platelet Volume 9.3 fL (7.4-10.4); Monocytes # 0.6 10^3/uL (0.2-0.9); Monocytes % 9.4 %; Neutrophils % 57.2 %; Nucleated Red Blood Cells % 0 %; Platelet Count 272 10^3/cmm (157-399); Red Blood Count 4.78 10^6/uL (3.85-5.65); Red Cell Distribution Width 12.3 % (12.1-15.1); White Blood Count 6.29 10^3/uL (3.29-11.43)
[2024-08-12 10:17] LABS: Troponin(5th) Baseline 8 ng/L (0-15)
[2024-08-12 10:19] LABS: Alanine Aminotransferase 30 U/L (0-41); Albumin Level 4.3 g/dL (3.5-5.2); Alkaline Phosphatase 74 U/L (40-130); Blood Urea Nitrogen 22 mg/dL (8-23); Calcium 9.3 mg/dL (8.5-10.5); Carbon Dioxide 28 mmol/L (22-29); Chloride 102 mmol/L (98-107); Creatinine Clr Calc Pharmacy 66.2997; Globulin 2.1 g/dL (1.3-4.6); Glucose 108 mg/dL (65-115); Osmolality Calculated 294 mOsm/kg (285-295); Sodium 140 mmol/L (136-145); Total Bilirubin 0.5 mg/dL (0.15-1.2); Total Protein 6.4 g/dL (6.6-8.7)
[2024-08-12 10:22] LABS: Anion Gap 14.9 (5-19); Aspartate Amino Transferase 30 U/L (0-40); Potassium 4.9 mmol/L (3.5-5.1)
[2024-08-12] MEDS: nitroglycerin 0.4 mg sublingual Tablet SUBLINGUAL (10:36)
--- NOTE | 2024-08-12 11:12 | ECG_ITS ---
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 Measurements Intervals [place] Rate: 63 P: 42 ME: 179 QRS: 34 QRSD: 88 T: 36 QT: 378 QTc: 388 Interpretive Statements SINUS RHYTHM POSSIBLE LEFT ATRIAL ENLARGEMENT [-0.1mV P-WAVE IN V1/V2] EARLY REPOLARIZATION [ST ELEVATION WITH NORMALLY INFLECTED T-WAVE] Compared to ECG 08/12/2024 09:25:45 Early repolarization now present Electronically Signed On 08-12-2024 16:31:55 CDT by Corby Fitzpatrick M.D. [email or web address].Inetec/store/[id number]
== END 2024-08-12 12:19 | disposition home or self-care (01) ==
PROVIDERS: Emergency Provider Physician Assistant; PCP Family Medicine
DX: I25.118 Atherosclerotic heart disease of native coronary artery with other forms of angina pectoris (principal); I10 Essential (primary) hypertension; E78.5 Hyperlipidemia, unspecified; Z79.899 Other long term (current) drug therapy
CPT/HCPCS: 71045; 80053; 84484; 85025; 93005; 99285

== ENCOUNTER 2024-08-13 06:57 | Outpatient (CLI) | payer OTHER, SELFPAY ==
[2024-08-13 07:08] VITALS: BMI 25.7
--- NOTE | 2024-08-13 07:09 | ECG_ITS ---
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 Interpretive Statements LEXISCAN SESTAMIBI STRESS TEST Procedure: At the baseline, the blood pressure was 152/67 mmHg with a heart rate of 62 bpm. The electrocardiogram showed normal sinus rhythm, normal axis with normal ST and T's. The Lexiscan was infused over a period of 20 seconds. A total of 0.4 mg of Lexiscan was infused. The stress phase was continued for a total of 5 minutes. Heart rate was at the end of stress phase was 69 bpm and a blood pressure of 138/59 mmHg. The EKG at the peak infusion revealed normal sinus rhythm with no significant ST-T wave changes. Sestamibi was injected 20 seconds after the Lexiscan infusion. Blood pressure at the end of recovery phase was 136/59 mmHg with a heart rate of 69 bpm. Conclusion: 1. Normal EKG response to Lexiscan infusion 2. No Lexiscan induced chest pain or cardiac arrhythmia. 3. Normal blood pressure and heart rate response. 4. Sestamibi/sestamibi perfusion scan pending; see separate report. Electronically Signed On 08-22-2024 21:40:25 CDT by Corby Fitzpatrick M.D. [id number]
--- NOTE | 2024-08-13 07:09 | NMCV_ITS ---
NM sean perf SPECT r/s* [id number] Pacheco Gomez Age: 74 Gender: M : 1950 Exam Date: 08/13/2024 07:41 Ordering Phys: Loni Frye Technologist: CASEY Alvarez Exam Location: [facility] Indications: anfina/fatigue STRESS TEST Please [facility] IMAGE PROTOCOL Rest/Stress 1 Lexiscan Day Radiopharmaceutical Dose (mCi) Administration Site Administered by Rest: Tc-99m 10.9 IV Josefina Benitez, MANAGER REGULATORY Sestamibi Stress:Tc-99m 33 IV Josefina Joynergle, MANAGER REGULATORY Sestamibi Rest: 13-Aug-2024 60 Discovery 630 Stress: 13-Aug-2024 30 Discovery 630 0.4mg Lexiscan. Images obtained in supine and prone position. SPECT RESULTS Technical Quality: Good Raw Data Analysis: Normal Image Corrections: No attenuation or motion correction applied Summed Stress Score: 0 Summed Rest Score: 0 Summed Difference Score: 0 PERFUSION FINDINGS Medium sized area of persistently decreased tracer. Noted in basal to mid inferior and inferolateral lateral wall suggestive of old myocardial infarction versus artifact FUNCTIONAL RESULTS (calculated via Gated SPECT) Stress Image LV EF (%): 77 Stress EDV (mL):78 TID: 1.12 Stress ESV (mL):18 FUNCTIONAL FINDINGS: There is normal left ventricular systolic function. TID ratio was elevated which could be secondary to left ventricle hypertrophy cannot rule out multivessel coronary artery disease IMPRESSIONS Medium sized area of old myocardial infarction versus scarring noted in basal to mid inferior inferolateral wall, this study is negative for ischemia. There is no wall motion abnormality, left ventricular ejection fraction appeared to be normal. Ortiz Mckee MD (Electronically Signed) Final Date: 15 August 2024 20:01 S
[2024-08-13] MEDS: regadenoson 0.4 Mg/5 ml Syringe IVP (08:28)
[2024-08-13 08:34] VITALS: BP 136/59; PULSE 67
== END 2024-08-13 06:58 | disposition home or self-care (01) ==
PROVIDERS: PCP Family Medicine; Visit Provider Nurse Practitioner Family
DX: I25.118 Atherosclerotic heart disease of native coronary artery with other forms of angina pectoris (principal); R06.02 Shortness of breath
CPT/HCPCS: 36415; 78452; 93017; 96374; A9500; J2785

== ENCOUNTER 2025-01-12 06:34 | Outpatient (CLI) | payer OTHER, SELFPAY ==
--- NOTE | 2025-01-12 06:43 | USCV_ITS ---
Pacheco Gomez Age: 74 Gender: M : 1950 Exam Date: 01/12/2025 06:53 Ordering Phys: Danielle Live MD Technologist: ALYSSIA Exam Location: [facility] [place] Indication: CVA BP: 135 / 80 HR: 60 Rhythm: Sinus Technical Quality: Adequate MEASUREMENTS (Male / Female) Normal Values 2D ECHO LV Diastolic Diameter PLAX 3.6 cm 4.2 - 5.9 / 3.9 - 5.3 cm IVS Diastolic Thickness 0.8 cm 0.6 - 1.0 / 0.6 - 0.9 cm IVS Systolic Thickness 1.4 cm LVPW Diastolic Thickness 1.6 cm 0.6 - 1.0 / 0.6 - 0.9 cm LVPW Systolic Thickness 2.0 cm LVOT Diameter 2.0 cm LV Ejection Fraction 2D Teich 50.9 % LV Ejection Fraction MOD 4C 68.1 % LV Ejection Fraction MOD 2C 69.4 % LV Ejection Fraction 2C AL 70.8 % LA Diameter 2.9 cm RA Systolic Volume 4C AL 17.9 ml RA Systolic Volume 4C MOD 17.2 ml LA Sys Volume AL 35.6 cm cubed LA Sys Volume Index AL 19.2 cm cubed/m squared Aorta at Sinotubular Diameter 2.5 cm IVC Diameter 1.8 cm M-MODE LA Ao Ratio MM 1.2 AV Cusp Separation MM 1.5 cm DOPPLER AV Peak Velocity 133.0 cm/s LVOT Peak Velocity 96.0 cm/s AV Area Cont Eq vti 2.5 cm squared AV Area Cont Eq pk 2.2 cm squared MV Peak Velocity 80.0 cm/s MV Area PHT 3.5 cm squared Mitral E to A Ratio 0.7 TR Peak Velocity 206.0 cm/s TR Peak Gradient 17.0 mmHg TV Peak E Velocity 70.0 cm/s PV Peak Velocity 107.0 cm/s FINDINGS Left Ventricle Left ventricle is normal size. LV systolic function is normal with EF of 55-60%. No regional wall motion abnormalities are seen. Grade 1 diastolic dysfunction. Right Ventricle Normal in size and function Right Atrium Normal in size Left Atrium Normal in size Mitral Valve Structurally normal mitral valve. Mild mitral regurgitation. Aortic Valve Structurally normal aortic valve. Moderate aortic regurgitation. No significant stenosis. Tricuspid Valve Insufficient TR jet to calculate RVSP. Pulmonic Valve Mild pulmonic regurgitation. Pericardium Normal Aorta Normal in size IVC Appears to be normal CONCLUSIONS LV systolic function is normal with EF of 55-60% Grade 1 diastolic dysfunction Mild mitral regurgitation Moderate aortic regurgitation Mild pulmonic regurgitation Corby Fitzpatrick MD (Electronically Signed) Final Date: 18 January 2025 09:56 S
--- NOTE | 2025-01-12 06:45 | USCV_ITS ---
Pacheco Gomez Age: 74 Gender: M : 1950 Exam Date: 01/12/2025 07:14 Ordering Phys: Danielle Live MD Technologist: ALYSSIA Exam Location: [facility] [place] Indication: CVA Risk Factors: Previous Vascular Surgery: Right Brachial BP: / Left Brachial BP: / Right Left Velocity (cm/s) Spectral Plaque Velocity (cm/s) Spectral Plaque Syst/Diast Broadening Syst/Diast Broadening 47.90/ 14.20 Prox CCA 53.80 / 11.10 40.80/ 8.80 Mid CCA 60.10 / 13.30 39.80/ 10.50 Distal CCA 63.10 / 14.30 69.20/ 15.30 Prox ICA 42.30 / 10.80 66.70/ 23.00 Mid ICA 55.60 / 18.10 101.30/27.00 Distal ICA 79.90 / 21.70 81.60 ECA 83.20 1.70 ICA/CCA 0.70 Antegrade Vertebral Antegrade 48.00/ 12.80 cm/s 49.30/ 16.80 cm/s Tri Subclavian Bi 108.6 96.40 0 FINDINGS Comparison: none available. No significant elevation of systolic or diastolic velocities. Mixture of calcified and noncalcified plaque in the bifurcations. Ategrade vertebral arteries. CONCLUSIONS Bilateral ICA stenosis less than 50%. Mild plaque in the bifurcations. Dr. Gisel Riojas DO (Electronically Signed) Final Date: 12 January 2025 08:28 S
== END 2025-01-12 06:35 | disposition home or self-care (01) ==
LOC: RAD 06:36
PROVIDERS: PCP Family Medicine; Visit Provider Family Medicine
DX: G45.8 Other transient cerebral ischemic attacks and related syndromes (principal); I63.9 Cerebral infarction, unspecified; I50.30 Unspecified diastolic (congestive) heart failure; I34.0 Nonrheumatic mitral (valve) insufficiency; I35.1 Nonrheumatic aortic (valve) insufficiency; I37.1 Nonrheumatic pulmonary valve insufficiency
CPT/HCPCS: 93306; 93880

== ENCOUNTER 2025-01-22 11:29 | Emergency (ER) | payer OTHER, SELFPAY ==
[2025-01-22 11:34] VITALS: BP 154/81; PULSE 62; RESP 17; TEMP 36.4; O2SAT 96; BMI 25.3
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
--- NOTE | 2025-01-22 13:40 | DCPLANNER ---
messaged ortho for er f/u
[2025-01-22] MEDS: dexamethasone 10 mg/mL INJ IM (13:55)
[2025-01-22 14:08] VITALS: BP 147/83; PULSE 62; O2SAT 62
== END 2025-01-22 14:09 | disposition home or self-care (01) ==
PROVIDERS: Emergency Provider Nurse Practitioner Family; PCP Family Medicine
DX: S46.001A Unspecified injury of muscle(s) and tendon(s) of the rotator cuff of right shoulder, initial encounter (principal); E78.5 Hyperlipidemia, unspecified; I10 Essential (primary) hypertension; X58.XXXA Exposure to other specified factors, initial encounter
CPT/HCPCS: 73030; 96372; 99284; J1100

== ENCOUNTER → 2025-01-29 14:11 | Outpatient (BNVA) | payer OTHER, SELFPAY | PROVIDERS: PCP Family Medicine; Visit Provider Orthopaedic Surgery | DX: S46.001A Unspecified injury of muscle(s) and tendon(s) of the rotator cuff of right shoulder, initial encounter (principal); X58.XXXA Exposure to other specified factors, initial encounter | CPT/HCPCS: 73030; 99203 ==

== ENCOUNTER 2025-02-09 06:00 | Outpatient (RCR) | payer OTHER, SELFPAY | END 2025-02-09 23:59 | disposition home or self-care (01) | LOC: MPT 06:00 | PROVIDERS: Visit Provider Orthopaedic Surgery | DX: M25.511 Pain in right shoulder (principal) | CPT/HCPCS: 97110; 97161 ==

== ENCOUNTER 2025-02-10 05:00 | Outpatient (RCR) | payer OTHER, SELFPAY | END 2025-03-11 23:59 | disposition home or self-care (01) | LOC: MPT 05:00 | PROVIDERS: Visit Provider Orthopaedic Surgery | DX: M25.511 Pain in right shoulder (principal) | CPT/HCPCS: 97110; 97140; G0283 ==

== ENCOUNTER → 2025-03-05 09:20 | Outpatient (BNVA) | payer OTHER, SELFPAY | PROVIDERS: PCP Family Medicine; Visit Provider Internal Medicine Cardiovascular Disease | DX: R55 Syncope and collapse (principal); I25.118 Atherosclerotic heart disease of native coronary artery with other forms of angina pectoris; I10 Essential (primary) hypertension; E78.2 Mixed hyperlipidemia; R42 Dizziness and giddiness | CPT/HCPCS: 99214 ==

== ENCOUNTER 2025-03-12 06:30 | Outpatient (RCR) | payer OTHER, SELFPAY | END 2025-03-18 13:43 | disposition home or self-care (01) | LOC: MPT 06:30 | PROVIDERS: PCP Family Medicine; Visit Provider Orthopaedic Surgery | DX: M25.511 Pain in right shoulder (principal) | CPT/HCPCS: 97110; G0283 ==

== ENCOUNTER → 2025-03-17 12:55 | Outpatient (BNVA) | payer OTHER, SELFPAY | PROVIDERS: PCP Family Medicine; Visit Provider Orthopaedic Surgery | DX: M25.511 Pain in right shoulder (principal) | CPT/HCPCS: 99213 ==

== ENCOUNTER 2025-04-28 15:38 | Emergency (ER) | payer OTHER, SELFPAY ==
[2025-04-28 15:44] VITALS: BP 172/75; PULSE 95; RESP 16; TEMP 36.7; O2SAT 95
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
== END 2025-04-28 16:33 | disposition home or self-care (01) ==
PROVIDERS: Emergency Provider Physician Assistant; PCP Family Medicine
DX: L02.416 Cutaneous abscess of left lower limb (principal); E78.5 Hyperlipidemia, unspecified; I10 Essential (primary) hypertension; I25.118 Atherosclerotic heart disease of native coronary artery with other forms of angina pectoris
CPT/HCPCS: 87070; 87075; 87205; 99283

== ENCOUNTER 2025-05-25 14:55 | Observation (INO) | payer OTHER, SELFPAY ==
[2025-05-25 15:04] VITALS: BP 134/64; PULSE 79; RESP 16; TEMP 36.6; O2SAT 96; BMI 24.7
[2025-05-25 15:52] LABS: Hematocrit 46.1 % (37-53); Hemoglobin 15.50 g/dL (11.27-16.99); Mean Corpuscular HGB Conc 33.6 g/dL (30-55); Mean Corpuscular Hemoglobin 31.6 pg (27-33); Mean Corpuscular Volume 94.1 fl (82-101); Nucleated Red Blood Cells % 0 %; Platelet Count 290 10^3/cmm (157-399); Red Blood Count 4.90 10^6/uL (3.85-5.65); White Blood Count 10.44 10^3/uL (3.29-11.43)
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
--- NOTE | 2025-05-25 16:08 | CTR_ITS ---
PROCEDURE INFORMATION: Exam: CT Abdomen And Pelvis With Contrast Exam date and time: 05/25/2025 5:02 PM Age: 75 years old Clinical indication: Abdominal pain; Localized; Left lower quadrant (llq); Additional info: Abd pain TECHNIQUE: Imaging protocol: Computed tomography of the abdomen and pelvis with contrast. Radiation optimization: All CT scans at this facility use at least one of these dose optimization techniques: automated exposure control; mA and/or kV adjustment per patient size (includes targeted exams where dose is matched to clinical indication); or iterative reconstruction. Contrast material: OMNI 350; Contrast volume: 100 ml; Contrast route: INTRAVENOUS (IV); COMPARISON: CT abdomen pelvis w con* [id number] 07/05/2023 9:45 AM RADIATION DOSE METRICS: Total DLP (mGy-cm): 473.3 FINDINGS: Lungs: There is some dependent atelectasis at the lung bases not significantly changed. Liver: There are multiple small hypodensities in the liver largest measuring 2.9 cm in segment 1 and 2 cm in segment 4. These are unchanged from previous examination and have the appearance of benign simple cysts. Gallbladder and biliary ducts: The gallbladder is normal. There is no common bile duct dilation. Pancreas: The pancreas is normal. Spleen: The spleen is normal. Adrenal glands: The adrenal glands are normal. Kidneys and ureters: There is a 9 mm sized benign simple cyst posterior lower pole right kidney. There is a 1 cm sized benign simple cyst arising from the anterior aspect of the upper pole of the left kidney not significantly changed. There is no evidence of hydronephrosis. There is no evidence of renal or ureteral calcifications. Stomach and bowel: Extensive diverticulosis is present in the distal colon. There is thickening of the proximal sigmoid colon and some inflammatory stranding in the adjacent fat consistent with acute diverticulitis. No evidence for diverticular abscess is identified. There is no evidence of intestinal obstruction. Appendix: A normal appendix is identified. Intraperitoneal space: There is no evidence of free intraperitoneal fluid. Vasculature: The aorta demonstrates mild atherosclerotic calcification. There is no evidence of an abdominal aortic aneurysm. Lymph nodes: There is no evidence of lymphadenopathy. Urinary bladder: There is mild thickening of the urinary bladder wall unchanged from previous most likely representing bladder wall hypertrophy. Reproductive: The prostate demonstrates moderate nonspecific enlargement. The seminal vesicles are normal. The prostate gland demonstrates nonspecific parenchymal calcifications. Bones/joints: The lumbar spine demonstrates moderate degenerative changes at multiple levels. There is mild scoliosis concave to the right. There is no evidence of acute fracture. Soft tissues: There is left inguinal hernia containing only fat. CT/CT abdomen pelvis w con* [id number] IMPRESSION: Diverticulitis COMMENTS: Consistent with the [employer]'s Incidental Findings Committee white paper (J Am Davy Radiol 2018): Any incidental renal lesion less than 1 cm or classified as too small to characterize, or any incidental cystic renal lesion characterized as simple-appearing, is likely benign. No follow-up imaging is recommended for these lesions per consensus recommendations based on imaging criteria.
--- NOTE | 2025-05-25 16:09 | XRR_ITS ---
PROCEDURE INFORMATION: Exam: XR Chest Exam date and time: 05/25/2025 4:12 PM Age: 75 years old Clinical indication: Pain; Other: Abdominal; Additional info: Abdominal pain TECHNIQUE: Imaging protocol: Radiologic exam of the chest. Views: 1 view. COMPARISON: CR XR chest 1V portable [id number] 08/12/2024 9:33 AM FINDINGS: Lungs: Unremarkable. No consolidation. Pleural spaces: Unremarkable. No pleural effusion. No pneumothorax. Heart/Mediastinum: Unremarkable. No cardiomegaly. Bones/joints: Unremarkable. XR/XR chest 1V portable [id number] IMPRESSION: No acute findings.
[2025-05-25 16:14] LABS: Alanine Aminotransferase 17 U/L (0-41); Albumin Level 4.3 g/dL (3.5-5.2); Alkaline Phosphatase 95 U/L (40-130); Anion Gap 14.3 (5-19); Aspartate Amino Transferase 19 U/L (0-40); Blood Urea Nitrogen 19 mg/dL (8-23); Calcium 9.1 mg/dL (8.5-10.5); Carbon Dioxide 26 mmol/L (22-29); Chloride 103 mmol/L (98-107); Creatinine Clr Calc Pharmacy 72.2313; Globulin 2.9 g/dL (1.3-4.6); Glucose 96 mg/dL (65-115); Osmolality Calculated 290 mOsm/kg (285-295); Potassium 4.3 mmol/L (3.5-5.1); Sodium 139 mmol/L (136-145); Total Protein 7.2 g/dL (6.6-8.7)
[2025-05-25] MEDS: iohexol 350 mg/mL 500 mL Btl (per mL) IV (17:02)
[2025-05-25 17:06] VITALS: BP 150/79; PULSE 82; O2SAT 90
[2025-05-25 17:10] LABS: Glucose Urine UA Negative (Normal); Nitrate Urine Negative (Negative); Specific Gravity, Urine 1.021 (1.005-1.030)
[2025-05-25 17:10] LABS: Lipase 671 U/L (13-60)
[2025-05-25 17:12] LABS: Add Urine Microscopic? YES
[2025-05-25 18:30] VITALS: BP 137/73; PULSE 67; O2SAT 96
[2025-05-25] MEDS: piperacillin-tazobactam 3.375 GM in sodium chloride 0.9% (plus) 50 ML IV (18:50)
[2025-05-25 19:09] LABS: Lactic Sepsis W/Reflex 1.2 mmol/L (0.5-2.2)
[2025-05-25 20:38] VITALS: BP 117/59; PULSE 73; RESP 14; O2SAT 96
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
[2025-05-25 22:42] VITALS: BP 116/55; BP 154/76; PULSE 66; PULSE 68; RESP 14; RESP 17; TEMP 36.7; O2SAT 92; O2SAT 94
[2025-05-26] VITALS: BP 144/70; PULSE 66; RESP 16; TEMP 36.7; O2SAT 92
[2025-05-26] MEDS: piperacillin-tazobactam 3.375 GM in sodium chloride 0.9% (plus) 50 ML IV (02:20)
[2025-05-26 04:00] VITALS: BP 140/72; PULSE 74; RESP 16; TEMP 36.8; O2SAT 98
[2025-05-26 05:39] LABS: Hematocrit 43.0 % (37-53); Hemoglobin 14.40 g/dL (11.27-16.99); Mean Corpuscular HGB Conc 33.5 g/dL (30-55); Mean Corpuscular Hemoglobin 31.2 pg (27-33); Mean Corpuscular Volume 93.3 fl (82-101); Nucleated Red Blood Cells % 0 %; Platelet Count 276 10^3/cmm (157-399); Red Blood Count 4.61 10^6/uL (3.85-5.65); White Blood Count 8.80 10^3/uL (3.29-11.43)
[2025-05-26 06:02] LABS: Alanine Aminotransferase 13 U/L (0-41); Albumin Level 3.8 g/dL (3.5-5.2); Alkaline Phosphatase 84 U/L (40-130); Anion Gap 15.0 (5-19); Aspartate Amino Transferase 16 U/L (0-40); Blood Urea Nitrogen 15 mg/dL (8-23); Calcium 8.7 mg/dL (8.5-10.5); Carbon Dioxide 27 mmol/L (22-29); Chloride 103 mmol/L (98-107); Creatinine Clr Calc Pharmacy 63.8524; Globulin 2.3 g/dL (1.3-4.6); Glucose 96 mg/dL (65-115); Osmolality Calculated 291 mOsm/kg (285-295); Potassium 5.0 mmol/L (3.5-5.1); Sodium 140 mmol/L (136-145); Total Protein 6.1 g/dL (6.6-8.7)
[2025-05-26 06:11] LABS: Lipase 48 U/L (13-60)
[2025-05-26 07:12] VITALS: BP 124/64; PULSE 70; RESP 18; TEMP 36.7
--- NOTE | 2025-05-26 09:11 | PC.CHAP ---
Pastoral Care Encounter/Spiritual Assessment Type of Contact [x] Declined manager discovery visit [] Patient/Family/Request visit [] Outpatient visit [] Follow-up visit [] Physician referral [] Code/Alert [] Routine visit [] Staff referral [] Actively dying [] Patient sleeping [] Family support [] [] Out of room [] Palliative care [] [] Receiving care in room [] Pre-surgical visit [] Trauma [] Long length of stay [] ICU visit [] Other: Relational/Emotional Strength [] Patient feels connected with others/family/visitors/staff [] Distress [] Loneliness/isolation [] Abandonment Spirituality of Patient [] Person of Yasemin [] Attends Church of their Yasemin [] Believes in Prayer [] Reads Bible or Lutheran materials [x] There are Spiritual issues to be addressed Detective [place] Interventions [x] Prayer [] Active listening [] Non-anxious presence [] Spiritual/emotional support [] Crisis/trauma care [] Spiritual counseling [] Bereavement support [] Provided bereavement packet [] Provided Bible/devotional materials [] Provided toy/stuffed animal, coloring book to patient or family member [] Provided Communion [] Anointing/[place] [] Salvation [x] Completed spiritual assessment [] Other: Impact on Illness or Injury [] Angry [] Fearful [] Anxious [] Often cries [] Exhaustion [] Unable to work [] Unable to attend amish [] Unable to walk/stand [] Unable to read [] Unable to drive [] Unable to eat/drink [] Unable to sleep [] Unable to be with family [] Patient intubated [] Other: Summary Time spent with patient
[2025-05-26 11:17] VITALS: BP 142/72; PULSE 63; RESP 18; TEMP 36.5; O2SAT 95
--- NOTE | 2025-05-26 11:21 | PC.PHAR ---
Patient states he has his medications but has not been taking them in a long time. Patinet states he takes a Ibprofen 600 at bedtime nightly.
--- NOTE | 2025-05-26 11:30 | P.DS_ITS ---
Discharge Providers Date of Admission: 05/25/25 22:12 Date of Discharge: May 26, 2025 Attending Provider at Admission: Sree Manley Attending Provider at Discharge: Pa Cueto MD Primary Care Provider: Danielle Live MD Diagnoses at Discharge Discharge Diagnosis 1. Diverticulitis: Details from hospital stay: Much improved and no significant pain. Discharge home on oral antibiotics to complete a 7-day course. Patient will follow clear liquid diet today advancing to full liquid tomorrow and small portion regular food by end of the week. Recommend increase fiber intake and possibly add Metamucil 2. Elevated lipase: Details from hospital stay: Resolved. Do not drink alcohol. Gallbladder was normal with no common bile duct dilatation 3. Atherosclerosis of [place] coronary artery of [place] heart with stable angina pectoris: Details from hospital stay: Patient denies angina and is not taking Imdur so that was stopped. Due to hypertension I added losartan 25 mg daily. He will continue with as needed nitroglycerin sublingual Reason for Visit Reason for Visit: abd pain Brief History: Pacheco Gomez is a 75 year old patient with a history of diverticulosis, GERD, gastritis/duodenitis, coronary artery disease with prior coronary stenting, obstructive sleep apnea, hypertension, and hyperlipidemia presenting with 2?3 days of left lower-quadrant abdominal pain accompanied by nausea. The patient denies vomiting, fever, chest pain, shortness of breath, leg swelling, rashes, hematuria, hematochezia, or melena. CT abdomen/pelvis performed in the ED shows acute diverticulitis (sigmoid wall thickening, inflammatory stranding) without abscess or obstruction; pancreas appeared normal. Initial labs notable for lipase 671 U/L, otherwise normal CBC, BMP, liver panel, and UA. Vital signs stable. Received one dose of piperacillin-tazobactam in the ED. Admitted for overnight observation to monitor abdominal symptoms and reassess lipase. The patient reports nightly use of ibuprofen and trazodone; previously stopped clopidogrel nearly a year ago despite coronary stents. Denies alcohol use and has never smoked. Prefers no blood transfusions for uatsdin reasons. Hospital Course Hospital Course Patient with diverticulitis but no significant white count. Worrisome finding of elevated lipase of 671 so patient was observed in the hospital. He denies drinking alcohol. Patient's lipase returned to normal of 41. White count remained normal and his pain is resolved. He is not tender to exam and has not required any narcotic pain meds overnight. Patient was on. Piperacillin and tazobactam and will be transition to Augmentin for total of 7 days. Patient has history of 5 stents and is followed by Dr. Lantigua last seeing him 6 months ago. Patient states that he felt a little malaise taking Plavix so he stopped taking it daily but still continues the enteric-coated aspirin. I discussed with him that the Plavix helps prevent restenosis of the stent and he should take it as long as the operations examiner recommends that he do so. I offered to change it to another agent such as Brilinta but patient declines. He states he is going to start taking it regularly. If he has trouble he will take it up with Dr. Lantigua further. Physical Exam Narrative: General well-developed well-nourished male no acute cardiopulmonary stress CV regular rate and rhythm Lungs clear to auscultation bilaterally Abdomen positive bowel tones soft nontender Calves no tenderness or pretibial edema Discharge Data Studies Completed and Pending Completed Studies During Hospitalization Category Date Time Status CT abdomen pelvis w con* [id number] Stat Cat Scan 05/25/25 16:08 Completed XR chest 1V portable [id number] Stat Exams 05/25/25 16:09 Completed Pending at discharge Category Date Time Status Blood Culture Stat Lab 05/25/25 18:37 Results Radiology Impressions Abdomen/Pelvis CT 05/25/25 16:08 IMPRESSION: Diverticulitis COMMENTS: Consistent with the [employer]'s Incidental Findings Committee white paper (J Am Davy Radiol 2018): Any incidental renal lesion less than 1 cm or classified as too small to characterize, or any incidental cystic renal lesion characterized as simple-appearing, is likely benign. No follow-up imaging is recommended for these lesions per consensus recommendations based on imaging criteria. Chest X-Ray 05/25/25 16:09 IMPRESSION: No acute findings. Laboratory Results WBC 8.80 10^3/uL (3.29-11.43) 05/26/25 04:57 RBC 4.61 10^6/uL (3.85-5.65) 05/26/25 04:57 Hgb 14.40 g/dL (11.27-16.99) 05/26/25 04:57 Hct 43.0 % (37-53) 05/26/25 04:57 MCV 93.3 fl (82-101) 05/26/25 04:57 MCH 31.2 pg (27-33) 05/26/25 04:57 MCHC 33.5 g/dL (30-55) 05/26/25 04:57 RDW 12.5 % (12.1-15.1) 05/26/25 04:57 Plt Count 276 10^3/cmm (157-399) 05/26/25 04:57 MPV 9.3 fL (7.4-10.4) 05/26/25 04:57 Neut % (Auto) 68.2 % 05/26/25 04:57 Lymph % (Auto) 15.6 % 05/26/25 04:57 [place] % (Auto) 8.9 % 05/26/25 04:57 Eos % (Auto) 6.8 % 05/26/25 04:57 Baso % (Auto) 0.3 % 05/26/25 04:57 Neut # (Auto) 6.00 10^3/uL (1.8-7.7) 05/26/25 04:57 Lymph # (Auto) 1.4 10^3/uL (0.8-4.8) 05/26/25 04:57 [place] # (Auto) 0.8 10^3/uL (0.2-0.9) 05/26/25 04:57 Eos # (Auto) 0.6 10^3/uL (0.0-0.8) 05/26/25 04:57 Baso # (Auto) 0.0 10^3/uL (0.0-0.1) 05/26/25 04:57 Nucleated RBC % (auto) 0 % 05/26/25 04:57 Nucleated RBCs # 0.0 /100WBC 05/26/25 04:57 Sodium 140 mmol/L (136-145) 05/26/25 04:57 Potassium 5.0 mmol/L (3.5-5.1) 05/26/25 04:57 Chloride 103 mmol/L (98-107) 05/26/25 04:57 Carbon Dioxide 27 mmol/L (22-29) 05/26/25 04:57 Anion Gap 15.0 (5-19) 05/26/25 04:57 BUN 15 mg/dL (8-23) 05/26/25 04:57 Creatinine 0.9 mg/dL (0.7-1.2) 05/26/25 04:57 GFR Calculation Not Reportable 05/26/25 04:57 Glucose 96 mg/dL (65-115) 05/26/25 04:57 Calculated Osmolality 291 mOsm/kg (285-295) 05/26/25 04:57 Lactic Acid 1.2 mmol/L (0.5-2.2) 05/25/25 18:37 Calcium 8.7 mg/dL (8.5-10.5) 05/26/25 04:57 Total Bilirubin 0.7 mg/dL (0.15-1.2) 05/26/25 04:57 AST 16 U/L (0-40) 05/26/25 04:57 ALT 13 U/L (0-41) 05/26/25 04:57 Alkaline Phosphatase 84 U/L (40-130) 05/26/25 04:57 Total Protein 6.1 g/dL (6.6-8.7) L 05/26/25 04:57 Albumin 3.8 g/dL (3.5-5.2) 05/26/25 04:57 Globulin 2.3 g/dL (1.3-4.6) 05/26/25 04:57 Lipase 48 U/L (13-60) 05/26/25 04:57 Urine Color Yellow (Yellow) 05/25/25 16:24 Urine Appearance Clear (CLEAR) 05/25/25 16:24 Urine pH 5.5 (5-7) 05/25/25 16:24 Ur Specific [place] 1.021 (1.005-1.030) 05/25/25 16:24 Urine Protein Negative (Negative) 05/25/25 16:24 Urine Glucose (UA) Negative (Normal) 05/25/25 16:24 Urine Ketones Negative (Negative) 05/25/25 16:24 Urine Blood Negative (Negative) 05/25/25 16:24 Urine Nitrate Negative (Negative) 05/25/25 16:24 Urine Bilirubin Negative (Negative) 05/25/25 16:24 Urine Urobilinogen 0.2 mg/dL (Negative) 05/25/25 16:24 Ur Leukocyte Esterase Negative (Negative) 05/25/25 16:24 Urine RBC 0-2 /hpf (0-2) 05/25/25 16:24 Urine WBC 0-5 /hpf (0-5) 05/25/25 16:24 Ur Squamous Epith Cells 0-5 /hpf (0-5) 05/25/25 16:24 Amorphous Sediment Not Reportable 05/25/25 16:24 Urine Bacteria None seen /hpf (NONE) 05/25/25 16:24 Hyaline Casts 0-4 /lpf H 05/25/25 16:24 Vitals Last Vital Signs Temp 97.7 F 05/26/25 11:17 Pulse 63 05/26/25 11:17 Resp 18 05/26/25 11:17 BP 142/72 05/26/25 11:17 Pulse Ox 95 05/26/25 11:17 O2 Del Method Room Air 05/26/25 11:17 Discharge Plan Discharge Patient Disposition: Home Condition: Stable Prescriptions: New losartan 25 mg tablet 25 mg PO DAILY Qty: 30 0RF amoxicillin-pot clavulanate 875-125 mg tablet 1 tab PO Q8H Qty: 20 0RF acetaminophen 325 mg Tablet 650 mg PO Q6H PRN (Reason: Mild/Mod Pain Or Temp >/= 101) Qty: 30 0RF aspirin [Adult Low Dose Aspirin] 81 mg tablet,delayed release (DR/EC) 81 mg PO DAILY Qty: 100 0RF Continued nitroglycerin [Nitrostat] 0.4 mg tablet, sublingual 0.4 mg SUBLINGUAL Q5M PRN (Reason: Chest Pain) clopidogrel [Plavix] 75 mg tablet 75 mg PO QDAY losartan 25 mg tablet 25 mg PO DAILY 30 Days Qty: 30 5RF Discontinued isosorbide mononitrate 60 mg tablet extended release 24 hr 60 mg PO DAILY Qty: 90 3RF Discharge Order = DC NOW: Discharge Order (Routine); Ordered 05/26/25 Ordered By: Pa Cueto Referrals: Danielle Live MD [Primary Care Provider, Family Practice] Discharge Diet: Advance as tolerated and Clear Liquid Discharge Activity: Increase activity as tolerated Patient Instructions: Opioid Safety, Patient Portal & [place] Instructions Activity Restrictions/Additional Instructions: Clear liquid diet today then full liquids and advance to regular diet over the course of 3 days I would recommend adding more fiber to your diet to prevent further episodes of diverticulitis. You could consider taking Metamucil 1 dose daily with water to affected fluffy stool less likely to get trapped in the diverticula and cause further diverticulitis Please resume your Plavix as it decreases chance of restenosis of your stents. If you are having difficulty tolerating the Plavix there are other platelet inhibitors that can be used and you should discuss that with Dr. Lantigua Because you are not taking Imdur at all I do not think it needs to be resumed. Your blood pressure is little high so I started losartan 25 mg daily Discharge Attestations Time Spent in Discharge Care*: greater than 30 min Status at Discharge: Cognitive status at discharge: cognitively intact , Behavioral status at discharge: cooperative , Quality Metrics Clinical Quality Measures [ No reported AMI, CVA or VTE this stay] Coding Level of Care Code 97849 Diagnoses Diverticulitis K57.92 Elevated lipase R74.8 Atherosclerosis of [place] coronary artery of [place] heart with stable angina pectoris I25.118 Coronary Disease-Associated Artery/Lesion type: [place] artery Time Spent (min) 35
--- NOTE | 2025-05-26 11:47 | PC.PHAR ---
Verified Medications on list with [facility] .
[2025-05-26 14:32] VITALS: BP 142/72; PULSE 63; RESP 18; TEMP 36.5; O2SAT 95
--- NOTE | 2025-05-26 14:46 | PC.NURSE ---
Discussed discharge with patient and the significance of taking plavix. Went over other new medications and continued medications. Discussed follow up visit and to record blood pressures to take to follow up appointment. Medications were delivered at bedside and patient verbalized understanding to all.
== END 2025-05-26 14:38 | disposition home or self-care (01) ==
LOC: ER 22:00 → MEDSURG 22:13
PROVIDERS: Emergency Medicine; Family Medicine; Admitting Provider Internal Medicine; Emergency Provider Emergency Medicine; PCP Family Medicine; Visit Provider Internal Medicine
DX: K57.92 Diverticulitis of intestine, part unspecified, without perforation or abscess without bleeding (principal); R74.8 Abnormal levels of other serum enzymes; I25.118 Atherosclerotic heart disease of native coronary artery with other forms of angina pectoris; K21.9 Gastro-esophageal reflux disease without esophagitis; Z95.5 Presence of coronary angioplasty implant and graft; G47.33 Obstructive sleep apnea (adult) (pediatric); I10 Essential (primary) hypertension; E78.5 Hyperlipidemia, unspecified; F32.A Depression, unspecified; Z82.49 Family history of ischemic heart disease and other diseases of the circulatory system
CPT/HCPCS: 36415; 71045; 74177; 80053; 81001; 83605; 83690; 85025; 87040; 96365; 99285; G0378; J2543; J7030; J9999

== ENCOUNTER → 2025-07-03 08:22 | Outpatient (BNVA) | payer OTHER, SELFPAY | PROVIDERS: PCP Family Medicine; Visit Provider Physician Assistant | DX: M25.562 Pain in left knee (principal); T84.498A Other mechanical complication of other internal orthopedic devices, implants and grafts, initial encounter; X58.XXXA Exposure to other specified factors, initial encounter | CPT/HCPCS: 73560; 73565; 99204 ==

== ENCOUNTER 2025-07-06 11:26 | Day surgery (SDC) | payer OTHER, SELFPAY ==
[2025-07-06] VITALS (10 sets, daily range): BP systolic 109–157; BP diastolic 50–81; PULSE 54–79; RESP 10–25; TEMP 36.2–36.6; O2SAT 94–99; BMI 24.2
--- NOTE | 2025-07-06 | SC_ITS ---
WS: [id number] Exam: C-arm FL for CVA [id number] Date/Time of Exam: 07/06/2025 12:00 AM Reason For Exam: HARDWARE REMOVAL DLP: AP and lateral C-arm images are submitted. There are multiple screws and pins identified in the upper tibia and fibular head. Old fracture deformities of the proximal tibia and fibula are noted. Images obtained for intraoperative visualization purposes.
[2025-07-06] MEDS: acetaminophen 1,000 MG/100 ML PIGGYBACK 400 MG IV (12:42)
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
--- NOTE | 2025-07-06 13:43 | W.PM.OPSUD ---
Surgery/Procedure H&P Update DATE OF PROCEDURE: July 06, 2025 DATE H&P PERFORMED: 07/03/25 H&P UPDATE INFORMATION: I have reviewed H&P completed within last 30 days, I have examined patient prior to procedure and No changes to prior documentation PREOP DIAGNOSIS: Exposed orthopedic hardware PRIMARY INDICATION FOR PROCEDURE: Exposed orthopedic hardware left knee PLANNED PROCEDURE: Operation Date: 07/06/25 14:00 Proposed Procedures p Hardware Removal LEFT Knee(Left) - Suhail Melgar DO
[2025-07-06] MEDS: ceFAZolin 2,000 MG in sodium chloride 0.9% (plus) 50 ML 100 MG IV (13:49)
[2025-07-06] MEDS: ROPivacaine 0.5% SDV 30 mL 150 MG INJECTION (14:26)
--- NOTE | 2025-07-06 14:45 | PC.NURSE ---
patient requested removed hardware to take home. approved and hardware sent to [facility] to be sterilized and sent back with patient.
--- NOTE | 2025-07-06 14:50 | PM.OP ---
Operative Report Date of procedure: July 06, 2025 Pre-op diagnosis: Expose left knee orthopedic hardware Post-op diagnosis: Same Post-op findings: See operative report narrative Procedure done: Left knee deep orthopedic hardware removal Specimens removed/disposition: Deep orthopedic hardware stable plate removed sterilizing given back to patient per his request Surgeon: Suhail Melgar DO Extrusion Die Repair Manager: Thomas Melgar PA-C: PA was necessary for assistance in this case with leg positioning retraction, as well as assistance in implant removal, wound closure and dressing application, brace application. Anesthesia: General Estimated blood loss: 5 mL 17 minutes IV fluids: 600 mL Urine output: None Complications: None Findings: See operative report narrative Condition: stable Disposition: same day Brief History: Patient is a pleasant 75-year-old male who sustained an injury years ago and had orthopedic hardware placed. He had a staple in the anterior aspect of the knee he recently had had a fall and the orthopedic hardware had been exposed this on our outpatient evaluation has no drainage no signs of infection just an exposed staple plate hardware we talked about his options here moving forward he has been able to ambulate with this and the having no drainage or pain just would wish to have this removed as the staple is exposed and he would like to have this closed up. We talked about his options in detail in the outpatient setting as far as nonoperative operative mention as far as detailed out the incidence procedure risk benefits complication alternatives surgery through shared decision-making patient was proceed with surgical intervention for a left knee hardware removal. Patient understands agrees to current plan. Questions answered. Consent was reviewed and signed with patient in preoperative holding area. Procedure: Patient seen eval in the preoperative holding area. Consent was reviewed and signed with patient. Correct extremities and subsequently marked. Patient this point in time presents he developed bradycardia seizure once cleared for surgery patient was taken back to the operative suite. Patient was transported on the hospital table in supine position all bony prominences well-padded patient appropriate appropriately secured to the bed. At this point time patient underwent anesthesia per the anesthesia department once appropriate anesthetized the left lower extremity had a nonsterile tourniquet applied to the left thigh. Then the left lower extremity was then prepped and draped in standard orthopedic fashion. Final timeout performed. Patient received appropriate preoperative antibiotics. At this point in time Esmarch tourniquet was used exsanguinate left lower extremity tourniquet insufflated to 250 mmHg. At this point time patient had exposed hardware in stable. This did appear to be 1 hole plate and stable with 4 prongs. I brought in fluoroscopic imaging to evaluate this. At this point in time I used patient's previous incision and the already current open transverse wound this was extended just slightly medially and laterally just to create enough full-thickness flaps as well as to release any skin adhesions along the staple. At this point in time sharp scalpel incision was made directly onto the staple line hardware and I created full-thickness skin flaps. It was evident that patient's skin was starting to adhere and growth through the plate I subsequently had to excise ellipse out the edges of the skin and then subsequently utilized the scalpel as well as blunt elevator to mobilize and free up any tissue directly on top of the staple plate. Once this was fully exposed I was able to grab this with a pliers and was able to remove this atraumatically. There was no evidence of soft bone no drainage no erythema and no signs of infection at this point in time I then subsequently removed this and sent this off for sterilization getting back to the patient per his request I then brought him fluoroscopic imaging confirming final x-rays no evidence of instability. At this point in time I did have to undermined the subcutaneous tissue we protected the extensor mechanism throughout this procedure. Once I undermined and mobilized I was able to create full-thickness flaps that would approximate with good closure. This point in time thorough irrigation was performed I then subsequently down the tourniquet hemostasis was satisfactory with electrocautery. I then subsequently reapproximated the skin edges with interrupted PDS suture in mattress fashion. Given the transverse nature of this I did not want to have patient allow for earlier flexion and extension of the knee and as a result we will keep him in a knee immobilizer the incision was then dressed with Xeroform 4 x 4's ABD soft roll Julio C wrap and then a knee immobilizer was applied. Patient is then awakened from anesthesia and taken recovery in stable condition. Disposition Patient taken recovery in stable condition receive appropriate discharge instructions pain medication postoperatively as well as will keep patient knee immobilizer for 2 weeks to allow the incision to heal as well as we will prophylactically place him on antibiotics just due to the bit of hardware that was being exposed for a period of time. There was no signs of infection intraoperatively and nothing to culture. At this point in time we will plan on following up with patient in 2 weeks with goals at that time progressing out of the knee immobilizer. Patient understands and agrees with current plan. Questions answered.
--- NOTE | 2025-07-06 15:03 | W.PM.BPON ---
Date of Procedure: [July 06, 2025] Surgeon: [Dr. Ramón DO] Window Sash Installer(s): [Thomas Melgar PA-C] Procedure(s) performed: [Left knee orthopedic hardware removal] Findings of the procedure(s): [Left knee open wound with exposed orthopedic hardware. No signs of infection. Procedure went well and as planned.] Estimated blood loss: [3 ml] Specimen(s) removed: [Orthopedic staple removed] Post-operative diagnosis: [Left knee open wound with exposed orthopedic hardware ]
--- NOTE | 2025-07-06 15:06 | PM.PACU ---
PACU note Narrative: Patient is a 75-year-old male that just underwent a left knee orthopedic hardware removal. Pt transferred to PACU in stable condition. Dressing is dry. pt is awake and alert. pt can wiggle toes and plantarflex and dorsiflex foot. pt able to perform straight leg raise, Femoral nerve intact. Distal pulses are palpable toes are warm and well-perfused. Cap refill is normal and under 2 seconds. Sensation to foot is intact. Pain is controlled. Exam: awake Disposition: discharged
--- NOTE | 2025-07-06 15:30 | ANE.PACU2 ---
Inpatient post-anesthesia follow up: Airway intact: Yes Vital signs: Temperature 97.5 F Pulse Rate 57 Respiratory Rate 20 Blood Pressure 148/73 Pulse Oximetry 94 Oxygen Delivery Me thod Room Air Oxygen Flow Rate 8 Fraction of Inspir ed Oxygen Hydration adequate: Yes Nausea and vomiting: No Pain level: 1 Mental status: Baseline
== END 2025-07-06 16:30 | disposition home or self-care (01) ==
PROVIDERS: PCP Family Medicine; Visit Provider Student in an Organized Health Care Education/Training Program
PROC: (CPT 20680; principal; 2025-07-06 14:00)
DX: T85.898A Other specified complication of other internal prosthetic devices, implants and grafts, initial encounter (principal); W19.XXXA Unspecified fall, initial encounter; I10 Essential (primary) hypertension; Z79.02 Long term (current) use of antithrombotics/antiplatelets; Z79.82 Long term (current) use of aspirin; K21.9 Gastro-esophageal reflux disease without esophagitis; G47.30 Sleep apnea, unspecified; I25.118 Atherosclerotic heart disease of native coronary artery with other forms of angina pectoris; F32.A Depression, unspecified
CPT/HCPCS: 20680; 77001; J0131; J0690; J1100; J1885; J2405; J2704; J2795; J3010; J3373; J7030; J9999

== ENCOUNTER → 2025-07-21 13:41 | Outpatient (BNVA) | payer OTHER, SELFPAY | PROVIDERS: PCP Family Medicine; Visit Provider Physician Assistant | DX: Z98.890 Other specified postprocedural states (principal) | CPT/HCPCS: 73560; 73565; 99024 ==

== ENCOUNTER → 2025-08-05 13:54 | Outpatient (BNVA) | payer OTHER, SELFPAY | PROVIDERS: PCP Family Medicine; Visit Provider Student in an Organized Health Care Education/Training Program | DX: Z98.890 Other specified postprocedural states (principal) | CPT/HCPCS: 73560; 73565; 99213 ==

== ENCOUNTER → 2025-10-02 08:55 | Outpatient (BNVA) | payer OTHER, SELFPAY | PROVIDERS: PCP Family Medicine; Visit Provider Nurse Practitioner Family | DX: I25.118 Atherosclerotic heart disease of native coronary artery with other forms of angina pectoris (principal); I10 Essential (primary) hypertension; E78.5 Hyperlipidemia, unspecified; R07.89 Other chest pain; R00.2 Palpitations | CPT/HCPCS: 36415; 80053; 80061; 85025; 93005; 99214 ==

== ENCOUNTER 2025-10-13 07:09 | Outpatient (CLI) | payer OTHER, SELFPAY ==
--- NOTE | 2025-10-13 07:29 | ECG_ITS ---
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 Interpretive Statements Lung unchanged pre/post procedure; No Symptoms Reported in November of this year. He was found to second-degree type I PROCEDURE: At the baseline, the EKG revealed sinus bradycardia with features of early repolarization. The baseline heart was 58 bpm with a blood pressue of 152/69 mm of Hg Lexiscan was infused over a period of 20 seconds. A total of 0.4 milligrams of Lexiscan was infused. The stress phase was continued for a total of 5 minutes. Heart rate at the end of the stress phase was 70 bpm with a blood pressure 127/60 mm of Hg. The EKG at the peak infusion revealed no significant changes. Sestamibi was injected 20 seconds after the Lexiscan infusion. Heart rate at the end of the recovery phase was 68 bpm with a blood pressure of 122/67 mm of Hg. CONCLUSION: 1. No significant EKG changes with the LexiScan infusion 2. No LexiScan induced chest pain or cardiac arrhythmia 3. Normal blood pressure and heart rate response 4. Sestamibi/sestamibi perfusion scan pending; see separate report. Electronically Signed On 10-13-2025 09:11:53 LOAD BUILDER by Mateo Lantigua M.D. [email or web address]
--- NOTE | 2025-10-13 07:29 | NMCV_ITS ---
NM sean perf SPECT r/s* [id number] Pacheco Gomez Age: 75 Gender: M : 1950 Exam Date: 10/13/2025 08:10 Ordering Phys: Loretta Woodard NP Technologist: CASEY Alvarez Exam Location: [facility] Indications: cp STRESS TEST [facility] IMAGE PROTOCOL Rest/Stress 1 Lexiscan Day Radiopharmaceutical Dose (mCi) Administration Site Administered by Rest: Tc-99m 10.6 IV CASEY Alvarez Sestamibi Stress:Tc-99m 33 IV CASEY Crowley Sestamibi Rest: 13-Oct-2025 60 Discovery 630 Stress: 13-Oct-2025 30 Discovery 630 0.4mg Lexiscan. Images obtained in supine and prone position. SPECT RESULTS Technical Quality: Good Raw Data Analysis: Normal Image Corrections: No attenuation or motion correction applied Summed Stress Score: 0 Summed Rest Score: 0 Summed Difference Score: 0 PERFUSION FINDINGS Fairly uniform myocardial tracer uptake with no significant perfusion abnormalities. FUNCTIONAL RESULTS (calculated via Gated SPECT) Stress Image LV EF (%): 70 Stress EDV (mL):73 TID: 1.07 Stress ESV (mL):22 FUNCTIONAL FINDINGS: Segmental wall motion analysis revealing no gross wall motion abnormalities IMPRESSIONS 1. Myocardial perfusion imaging revealing uniform myocardial tracer uptake with no significant perfusion abnormalities 2. Normal LV ejection fraction of 70% 3. LV wall motion analysis revealing no gross wall motion abnormalities. 4. Normal LV volume Low probability for coronary ischemia, based on the above findings Dr Mateo Lantigua MD FACC (Electronically Signed) Final Date: 13 October 2025 12:57 S
[2025-10-13 07:31] VITALS: BMI 22.6
[2025-10-13 08:59] VITALS: BP 126/62; PULSE 70
== END 2025-10-13 07:10 | disposition home or self-care (01) ==
LOC: CDL 07:12
PROVIDERS: PCP Family Medicine; Visit Provider Nurse Practitioner Family
DX: R07.9 Chest pain, unspecified (principal); R93.1 Abnormal findings on diagnostic imaging of heart and coronary circulation
CPT/HCPCS: 36415; 78452; 93017; 96374; A9500; J2785

== ENCOUNTER → 2025-10-30 07:44 | Outpatient (BNVA) | payer OTHER, SELFPAY | PROVIDERS: PCP Family Medicine; Visit Provider Nurse Practitioner Family | DX: I25.118 Atherosclerotic heart disease of native coronary artery with other forms of angina pectoris (principal); I10 Essential (primary) hypertension; E78.5 Hyperlipidemia, unspecified; Z95.5 Presence of coronary angioplasty implant and graft | CPT/HCPCS: 99214 ==